=== PATIENT | male | born 1960 | race Hispanic/Latino ===

== ENCOUNTER 2020-07-24 08:52 | Inpatient (IN) | payer OTHER ==
[2020-07-24] MEDS ORDERED: HEPARIN 1,000 UNIT/1 ML VIAL IV ONE (08:58)
[2020-07-24] MEDS ORDERED: HEPARIN 10,000 UNITS/10 ML VIAL IV PRN (08:58)
[2020-07-24] MEDS ORDERED: NITROGLYCERIN 2% OINT 1 GM TP ONE (09:00)
[2020-07-24] MEDS ORDERED: NITROGLYCERIN 0.4 MG TAB SUBL SL ONE (09:00)
[2020-07-24] MEDS ORDERED: ONDANSETRON 4 MG/2 ML INJ ONE ×3 (09:02→10:34)
[2020-07-24] MEDS ORDERED: SODIUM CHLORIDE 0.9% 1000 ML 1,000 ML ONE ×2 (09:03→09:23)
[2020-07-24] MEDS ORDERED: ONDANSETRON 4 MG/2 ML INJ IV ONE ×2 (09:06→09:18)
--- NOTE | 2020-07-24 09:06 | Emergency Department Report ---
ED Chest Pain HPI - General Chief Complaint: Chest Pain Stated Complaint: CHEST PAIN PUI?: Yes Source: EMS Mode of arrival: Stretcher Limitations: No Limitations - History of Present Illness Initial Comments: This is a 50-year-old man who had a stent placed in his RCA when he presented with a STEMI in 2013 by Counts include 234 beds at the [facility]. He states he did not follow-up with a single corner cutter because "I did not want to bother anyone". He states he developed a dull ache in his substernal region intermittently radiating to his jaw since 11 AM yesterday. 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 He called EMS shortly prior to arrival. They transmitted a twelve-lead EKG which was consistent with inferior wall STEMI. A STEMI code was called immediately upon review of the EKG. The single corner cutter was notified at that time. I discussed the case again with the single corner cutter after the patient arrived. Code STEMI is in progress. Patient was not given nitroglycerin per the EMS. His blood pressure was 140/100. 1 sublingual nitroglycerin was given and we will monitor closely. 4000 units of heparin IV. Complaint: chest pain -: Gradual Onset: during rest Pain Location: substernal Pain Radiation: jaw/teeth Severity: moderate (Yesterday), severe (Today) Quality: dull Consistency: constant Improves With: nothing Worsens With: nothing Context: other (History of RCA stent) re: nausea Other Symptoms: denies: cough, fever, syncope Treatments Prior to Arrival: aspirin (Took 2 aspirin this morning) Aspirin use within the Past 7 Days: (1) Yes - Related Data On Oral Contraceptives: No Home Medications Medication Instructions Recorded Confirmed Last Taken Aspirin [Adult Aspirin] 162 mg PO DAILY 07/24/20 07/24/20 Unknown Allergies Allergy/AdvReac Type Severity Reaction Status Date / Time Cvbbjig-Jbo-Lnh Reductase Allergy Unknown Verified 07/24/20 08:58 Inhibitor Heart Score - HEART Score History: Highly suspicious EKG: Significant ST-depression Age: 45-65 Risk factors: > 3 risk factors or hx of atherosclerotic disease Troponin: 1-3x normal limit HEART Score: 8 - Critical Actions Critical Actions: >7 pts:50-65% risk of adverse cardiac event. Early invasive measures ED Review of Systems ROS: Stated complaint: CHEST PAIN Other details as noted in HPI Constitutional: denies: chills, fever Eyes: denies: eye pain, vision change ENT: denies: ear pain, throat pain Respiratory: denies: cough, shortness of breath Cardiovascular: chest pain. denies: palpitations Endocrine: no symptoms reported Gastrointestinal: nausea. denies: abdominal pain, diarrhea Genitourinary: denies: urgency, dysuria Musculoskeletal: denies: back pain, arthralgia Skin: denies: rash, lesions Neurological: denies: headache, weakness, paresthesias Psychiatric: denies: anxiety, depression Hematological/Lymphatic: denies: easy bleeding, easy bruising ED Past Medical Hx - Past Medical History Hx Hypertension: Yes Hx CVA: No Hx Heart Attack/AMI: Yes Hx Congestive Heart Failure: No Hx Diabetes: No Hx Asthma: No Hx COPD: No Hx HIV: No - Surgical History Hx Coronary Stent: Yes - Social History Smoking Status: Never Smoker - Medications Home Medications: Home Medications Medication Instructions Recorded Confirmed Last Taken Type Aspirin [Adult Aspirin] 162 mg PO DAILY 07/24/20 07/24/20 Unknown History ED Physical Exam - General Limitations: No Limitations General appearance: alert, in no apparent distress - Head Head exam: Present: atraumatic, normocephalic - Eye Eye exam: Present: normal appearance. Absent: scleral icterus - ENT ENT exam: Present: mucous membranes moist - Neck Neck exam: Present: normal inspection - Respiratory Respiratory exam: Present: normal lung sounds bilaterally. Absent: respiratory distress - Cardiovascular Cardiovascular Exam: Present: regular rate, normal rhythm. Absent: systolic murmur, diastolic murmur, rubs, gallop - GI/Abdominal GI/Abdominal exam: Present: soft, normal bowel sounds. Absent: distended, tenderness, guarding, rebound - Rectal Rectal exam: Present: deferred - Extremities Exam Extremities exam: Present: normal inspection - Back Exam Back exam: Present: normal inspection - Neurological Exam Neurological exam: Present: alert, oriented X3, CN II-XII intact. Absent: motor sensory deficit - Psychiatric Psychiatric exam: Present: normal affect, normal mood - Skin Skin exam: Present: warm, dry, intact, normal color. Absent: rash ED Course Vital Signs 07/24/20 07/24/20 07/24/20 08:54 09:02 09:06 Temperature Pulse Rate 89 55 L Respiratory 16 18 16 Rate Blood Pressure 140/103 Blood Pressure 79/40 [Left] O2 Sat by Pulse 100 98 Oximetry 07/24/20 07/24/20 07/24/20 09:08 09:11 09:18 Temperature 97.9 F Pulse Rate 52 L Respiratory 16 Rate Blood Pressure Blood Pressure 103/57 119/75 [Left] O2 Sat by Pulse 99 Oximetry - Reevaluation(s) Reevaluation #1: Patient was transferred to the [facility] in stable condition. 07/24/20 09:30 Reevaluation #2: Hospitalist informed. Requested ICU placement. 07/24/20 09:37 JESUS score - Jesus Score Age > 65: (0) No Aspirin use within the Past 7 Days: (1) Yes 3 or more CAD Risk Factors: (1) Yes 2 or more Angina events in past 24 hrs: (1) Yes Known CAD with more than 50% Stenosis: (1) Yes Elevated Cardiac Markers: (1) Yes ST Deviation Greater than 0.5mm: (1) Yes JESUS Score: 6 ED Medical Decision Making - Lab Data Result diagrams: 07/24/20 09:01 07/24/20 09:01 - EKG Data -: EKG Interpreted by Me EKG shows normal: sinus rhythm Rate: normal - EKG Data Interpretation: other (Consistent with inferior wall STEMI and reciprocal changes) Critical Care Time: Yes Critical care time in (mins) excluding proc time.: 30 Critical care attestation.: If time is entered above; I have spent that time in minutes in the direct care of this critically ill patient, excluding procedure time. ED Disposition Clinical Impression: Acute ST elevation myocardial infarction (STEMI) of inferior wall Disposition: -09 OP ADMIT IP TO THIS HOSP Is pt being admited?: Yes Does the pt Need Aspirin: Yes (Already taken to prior to arrival) Condition: Stable Referrals: PRIMARY CARE, [Primary Care Provider] - 3-5 Days Time of Disposition: 09:37
[2020-07-24 09:13] LABS: Basophils # (Auto) 0.1 K/mm3 (0.0-0.1); Basophils % (Auto) 1.2 % (0.0-1.8); Eosinophils % (Auto) 0.1 % (0.0-4.3); Hematocrit 50.3 % (35.5-45.6); Hemoglobin 17.4 gm/dl (11.8-15.2); Lymphocytes # (Auto) 0.8 K/mm3 (1.2-5.4); Lymphocytes % (Auto) 6.6 % (13.4-35.0); Mean Corpuscular HGB Conc 35 % (32-34); Mean Corpuscular Volume 89 fl (84-94); Monocytes # (Auto) 0.3 K/mm3 (0.0-0.8); Monocytes % (Auto) 2.2 % (0.0-7.3); Platelet Count 359 K/mm3 (140-440); Red Blood Count 5.67 M/mm3 (3.65-5.03)
[2020-07-24] MEDS ORDERED: HEPARIN/NS 5000 UNIT/500ML 1,000 ML IR ONE (09:22)
[2020-07-24] MEDS ORDERED: NITROGLYCERIN SYRINGE 3 ML ONE (09:22)
[2020-07-24 09:28] LABS: BUN/Creatinine Ratio 15; Blood Urea Nitrogen 15 mg/dL (9-20); Calcium 10.1 mg/dL (8.4-10.2); Hemolysis Index 5
[2020-07-24 09:29] LABS: INR 0.85 (0.87-1.13)
[2020-07-24 09:30] LABS: Partial Thromboplastin Time 36.9 Sec. (24.2-36.6)
--- NOTE | 2020-07-24 09:33 | XRay Report ---
CHEST 1 VIEW 07/24/2020 8:27 AM INDICATION / CLINICAL INFORMATION: chest pain. COMPARISON: 08/01/2013 FINDINGS: SUPPORT DEVICES: None. HEART / MEDIASTINUM: No significant abnormality. LUNGS / PLEURA: Low lung volumes without acute pulmonary parenchymal or pleural abnormality identifie d. No pneumothorax. ADDITIONAL FINDINGS: No significant additional findings. IMPRESSION: 1. No acute findings. Signer Name: Dennis Vann MD Signed: 07/24/2020 9:29 AM Workstation Name: [id number]
[2020-07-24 09:38] LABS: Chol/HDL Ratio 5.01 %; HDL Cholesterol 69 mg/dL (40-59); LDL Cholesterol,Direct 267 mg/dL (50-130)
[2020-07-24] MEDS: fentaNYL 100 MCG/2 ML INJ ONE ×3 (09:43→09:50)
[2020-07-24] MEDS: MIDAZOLAM 2 MG/2 ML INJ ONE ×3 (09:44→09:50)
[2020-07-24] MEDS: VERAPAMIL 5 MG/2 ML INJ ONE ×2 (09:44→09:48)
[2020-07-24] MEDS: LIDOCAINE (2%) 20 MG/1 ML VIAL 20 ML MDV INFILTRATI ONE ×2 (09:44→09:47)
[2020-07-24] MEDS: HEPARIN 10,000 UNITS/10 ML VIAL ONE ×3 (09:44→10:02)
[2020-07-24] MEDS ORDERED: ATROPINE 0.1% (1 MG/10 ML) CARDIAC SYRINGE ONE ×2 (10:01→10:23)
[2020-07-24] MEDS ORDERED: TIROFIBAN/NS 12,500 MCG/250 ML BAG IV ONE (10:10)
[2020-07-24] MEDS ORDERED: METOPROLOL TARTRATE 5 MG/5 ML INJ IV ONE ×2 (10:12→10:17)
[2020-07-24] MEDS ORDERED: HEPARIN/NS 5000 UNIT/500ML 500 ML IR ONE (10:24)
[2020-07-24] MEDS ORDERED: VERAPAMIL 5 MG/2 ML INJ ONE (10:35)
[2020-07-24] MEDS ORDERED: CLOPIDOGREL 300 MG TAB ONE ×2 (10:41)
--- NOTE | 2020-07-24 12:06 | Cardiac Catherization Report ---
CARDIAC CATHETERIZATION AND CORONARY ANGIOPLASTY REPORT REASON FOR PROCEDURE: The patient is a 60-year-old man with a history of coronary artery disease and previous proximal right coronary artery stent. He presented to the hospital with chest pain and ECG consistent with an acute inferior wall ST elevation myocardial infarction. Emergency cardiac catheterization protocol was activated. PROCEDURES: 1. Left heart catheterization. 2. Selective left and right coronary angiography. 3. Coronary angioplasty and stenting of the distal right coronary artery. 4. Sedation time, start 0947, end 10:41. I was present for the entire procedure and supervised the moderate sedation protocol. The patient was prepped and draped in a sterile fashion after informed consent. The right radial cath site was prepped and draped after a negative Amrit's test. The right radial artery was entered using Seldinger technique followed by placement of a 6-Albanian hydrophilic sheath. Routine radial cocktail was administered via the sheath. Left coronary angiography was performed using a #3.5 left Abdirahman. Following this, we then exchanged for a #4 right Abdirahman guiding catheter and performed right coronary angiography. The angiograms were reviewed. CORONARY ANGIOGRAPHY: There was mild ostial narrowing of the left main coronary artery. The left anterior descending artery contained mild irregularities of its proximal segment. This was followed by a 30-40% luminal stenosis of the mid LAD at the origin of a medium sized mid diagonal branch. More distally, there was a 60-70% hazy stenosis of the mid distal LAD. The large, mid obtuse marginal branch of the circumflex artery contained a 60-70% stenosis of its proximal to mid segment before its bifurcation into 2 large subbranches. The right coronary artery was dominant. A stent was visible in the proximal to mid vessel. The stented segment was patent with minimal in-stent restenosis. Beyond that, there was a de liza 70% stenosis of the mid vessel at the acute margin. Beyond the acute margin, the right coronary artery was then occluded in its distal AV groove segment. This distal occlusion was the infarct related lesion and the target for coronary intervention. CORONARY ANGIOPLASTY: We exchanged the right Abdirahman guiding catheter for a 6-Albanian hockey stick catheter to provide a more optimal support. A 0.014 inch Ticker Wirer 50 guidewire was then directed into the right coronary artery to the distal segment and successfully penetrating the distal occlusion. Following wire placement, we used a 3.0 mm balloon catheter and predilated, restoring JESUS 2 flow and revealing a large distal right coronary system consisting of a large posterior descending branch and another large posterolateral branch. Following initial angioplasty, there was a residual, 99% stenosis at the infarct occlusion site. Initial attempts at stent deployment using a 3.5 x 22 mm stent were unsuccessful even with the use of a rohan wire. We then elected to target the focal occlusion using a 3.5 x 12 mm drug-eluting stent, which was successfully deployed and inflated to optimal pressures. Following stenting, there was scientologist of JESUS 3 flow, and excellent angiographic result and 0 residual stenosis at the primary treated site. The additional noninfarct lesions of borderline severity, located at the acute margin, the proximal PDA, and the proximal segment of the posterior left ventricular branch were all recommended for no interventional treatment at the current time. The procedure was well tolerated by the patient and there were no complications. The catheters and the wires were removed, sheath removed, and hemostasis achieved using a TR band. The patient was returned to the postprocedure unit in stable condition. CONCLUSION: 1. Acute inferior wall ST elevation myocardial infarction. 2. Multivessel coronary artery disease. 3. The infarct lesion is a de liza occlusion of the distal right coronary artery, distant from the previous coronary stent. 4. Successful angioplasty and stenting of the distal right coronary artery, with deployment of a 3.5 x 12 mm drug-eluting stent, excellent result at the treated site. The patient is admitted for post-myocardial infarction stabilization. Lesions of varying severity of the mid distal LAD, mid obtuse marginal branch of the circumflex and mid and distal segments of the right coronary artery will be considered for a staged management. Ultimately, the patient may be a candidate for surgical multivessel revascularization. An echocardiogram will be ordered for left ventricular function and valvular function assessment. [facility]# [id number] CA/NTS
--- NOTE | 2020-07-24 12:15 | History and Physical Report ---
History of Present Illness Date of examination: 07/24/20 Date of admission: 07/24/20 09:38 Chief complaint: Chest pain History of present illness: 60 year old with a medical history of CAD s/p stents who presented to the ED with a chief complaint of chest pain. He states his chest pain started on the day prior to presentation. It was located mainly around the substernal area and was radiating to the jaw intermittently. Due to persistent symptoms, he called the EMS today. On arrival, EMS performed an EKG which showed inferior wall STEMI and a STEMI code was initiated after confirmation with the timber management specialist. He had left cath that showed patent proximal to mid right coronary stent but more distally, the vessel was occluded. Angioplasty with stent placement was performed successfully. 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 Past History Past Medical History: acute [place], hypertension Medications and Allergies Allergies Allergy/AdvReac Type Severity Reaction Status Date / Time Lacaiay-Ubh-Rko Reductase Allergy Unknown Verified 07/24/20 08:58 Inhibitor Home Medications Medication Instructions Recorded Confirmed Last Taken Type Aspirin [Adult Aspirin] 162 mg PO DAILY 07/24/20 07/24/20 Unknown History Active Meds: Active Medications Heparin Sodium (Porcine) (Heparin 10,000 Units/10 Ml Vial) 2,800 unit 40 unit/kg (2800 unit) IV Q6H PRN PRN Reason: Anti-Xa Assay less than 0.1 un Exam - Constitutional Vitals: Temp Pulse Resp BP Pulse Ox 17 F L 81 19 90/65 91 07/24/20 12:00 07/24/20 12:00 07/24/20 12:00 07/24/20 12:00 07/24/20 12:00 General appearance: Present: no acute distress - EENT Eyes: Present: PERRL ENT: hearing intact - Neck Neck: Present: supple, normal ROM - Respiratory Respiratory effort: normal Respiratory: bilateral: CTA - Cardiovascular Heart Sounds: Present: S1 & S2. Absent: rub, click - Extremities Extremities: pulses symmetrical, No edema Peripheral Pulses: within normal limits - Abdominal General gastrointestinal: Present: soft, non-tender, non-distended, normal bowel sounds Male genitourinary: Present: normal - Integumentary Integumentary: Present: clear, warm, dry - Musculoskeletal Musculoskeletal: gait normal, strength equal bilaterally - Psychiatric Psychiatric: appropriate mood/affect, intact judgment & insight - Neurologic Neurologic: CNII-XII intact, moves all extremities HEART Score - HEART Score EKG: Significant ST-depression Age: 45-65 Risk factors: > 3 risk factors or hx of atherosclerotic disease Troponin: Troponin T 0.056 ng/mL (0.00-0.029) H 07/24/20 09: Troponin: 1-3x normal limit - Critical Actions Critical Actions: >7 pts:50-65% risk of adverse cardiac event. Early invasive measures Results - Labs CBC & Chem 7: 07/24/20 09:01 07/24/20 09: Labs: Laboratory Last Values WBC 12.4 K/mm3 (4.5-11.0) H 07/24/20 09: RBC 5.67 M/mm3 (3.65-5.03) H 07/24/20 09: Hgb 17.4 gm/dl (11.8-15.2) H 07/24/20 09: Hct 50.3 % (35.5-45.6) H 07/24/20 09: MCV 89 fl (84-94) 07/24/20 09: MCH 31 pg (28-32) 07/24/20 09: MCHC 35 % (32-34) H 07/24/20 09: RDW 13.0 % (13.2-15.2) L 07/24/20 09: Plt Count 359 K/mm3 (140-440) 07/24/20 09: Lymph % (Auto) 6.6 % (13.4-35.0) L 07/24/20 09: [place] % (Auto) 2.2 % (0.0-7.3) 07/24/20 09: Eos % (Auto) 0.1 % (0.0-4.3) 07/24/20 09: Baso % (Auto) 1.2 % (0.0-1.8) 07/24/20 09: Lymph # (Auto) 0.8 K/mm3 (1.2-5.4) L 07/24/20 09: [place] # (Auto) 0.3 K/mm3 (0.0-0.8) 07/24/20 09: Eos # (Auto) 0.0 K/mm3 (0.0-0.4) 07/24/20 09:01 Baso # (Auto) 0.1 K/mm3 (0.0-0.1) 07/24/20 09:01 Seg Neutrophils % 89.9 % (40.0-70.0) H 07/24/20 09:01 Seg Neutrophils # 11.2 K/mm3 (1.8-7.7) H 07/24/20 09: PT 11.4 Sec. (12.2-14.9) L 07/24/20 09:01 INR 0.85 (0.87-1.13) L 07/24/20 09:01 APTT 36.9 Sec. (24.2-36.6) H 07/24/20 09:01 Sodium 140 mmol/L (137-145) 07/24/20 09:01 Potassium 4.3 mmol/L (3.6-5.0) 07/24/20 09: Chloride 98.4 mmol/L (98-107) 07/24/20 09:01 Carbon Dioxide 32 mmol/L (22-30) H 07/24/20 09:01 Anion Gap 14 mmol/L 07/24/20 09:01 BUN 15 mg/dL (9-20) 07/24/20 09:01 Creatinine 1.0 mg/dL (0.8-1.3) 07/24/20 09:01 Estimated GFR > 60 ml/min 07/24/20 09:01 BUN/Creatinine Ratio 15 % 07/24/20 09: Glucose 150 mg/dL (75-100) H 07/24/20 09:01 Calcium 10.1 mg/dL (8.4-10.2) 07/24/20 09:01 Total Creatine Kinase 317 units/L (55-170) H 07/24/20 09:01 CK-MB (CK-2) 41.0 ng/mL (0.0-4.0) H 07/24/20 09: CK-MB (CK-2) Rel Index 12.9 (0-4) H 07/24/20 09:01 Troponin T 0.056 ng/mL (0.00-0.029) H 07/24/20 09:01 NT-Pro-B Natriuret Pep 396.8 pg/mL (0-900) 07/24/20 09: Triglycerides 251 mg/dL (2-149) H 07/24/20 09: Cholesterol 346 mg/dL (50-199) H 07/24/20 09:01 LDL Cholesterol Direct 267 mg/dL (50-130) H 07/24/20 09:01 HDL Cholesterol 69 mg/dL (40-59) H 07/24/20 09:01 Cholesterol/HDL Ratio 5.01 % 07/24/20 09: Blood Type O POSITIVE 07/24/20 09: Antibody Screen Negative 07/24/20 09:01 Assessment and Plan Assessment and plan: CAD with STEMI -s/p PCI with stent placement -Continue aspirin -Patient allergic to statins -Cardiology recs appreciated Hyperlipidemia -Patient is allergic to statins -Check hemoglobin A1c -Lifestyle modification DVT ppx - heparin Full code
--- NOTE | 2020-07-24 12:43 | Consultation ---
History of Present Illness Consult date: 07/24/20 Consult reason: chest pain, other (Acute inferior STEMI) History of present illness: Patient is a 60-year-old man who presented to the hospital with chest pain and ECG consistent with acute inferior ST elevation myocardial infarction. He has a history of coronary artery disease and 6 years ago underwent coronary stenting of the proximal to mid right coronary artery. 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 Today, he was taken emergently to the cardiac catheterization lab, we found the prior proximal to mid right coronary stents to be patent, but more distally the vessel was occluded beyond the acute margin. We immediately performed successful angioplasty, with jewish of JESUS-3 flow after implantation of a 3.5 x 12 mm drug-eluting stent. In addition to the primary infarct lesion, the patient has multiple other stenoses of varying severity in the mid and distal right coronary artery, mid obtuse marginal branch of the circumflex and mid to distal LAD. Post intervention, he is admitted to the CCU for post NE supportive management. An echocardiogram will be ordered for left ventricular function assessment. His multiple noninfarct lesions in all 3 coronary segments will be reviewed for future revascularization efforts. Of note, his laboratory values show severe hyperlipidemia with an LDL of 267. The patient states that he is allergic to statins, but unable to fully articulate the nature of the reported allergy. Other than a statin, we will implement full guideline directed medical therapy. Past History Past Medical History: CAD Past Surgical History: PTCA, Other (Coronary stent) Medications and Allergies Allergies Allergy/AdvReac Type Severity Reaction Status Date / Time Fszvlbs-Bxu-Ypu Reductase Allergy Unknown Verified 07/24/20 08:58 Inhibitor Home Medications Medication Instructions Recorded Confirmed Last Taken Type Aspirin [Adult Aspirin] 162 mg PO DAILY 07/24/20 07/24/20 Unknown History Review of Systems Cardiovascular: chest pain, shortness of breath, no orthopnea, no palpitations, no rapid/irregular heart beat, no edema, no syncope, no lightheadedness Physical Examination Vital Signs Pulse Resp BP Pulse Ox 89 16 140/103 100 07/24/20 08:54 07/24/20 08:54 07/24/20 08:54 07/24/20 08:54 General appearance: no acute distress HEENT: Positive: PERRL Neck: Positive: neck supple Cardiac: Positive: Reg Rate and Rhythm Lungs: Positive: Decreased Breath Sounds Neuro: Positive: Grossly Intact Abdomen: Positive: Soft Male genitourinary: Positive: deferred Skin: Positive: Clear Extremities: Absent: edema Results 07/24/20 09:01 07/24/20 09:01 Cardiac Enzymes 07/24/20 Range/Units 09:01 CK-MB (CK-2) 41.0 H (0.0-4.0) ng/mL Coagulation 07/24/20 Range/Units 09:01 PT 11.4 L (12.2-14.9) Sec. INR 0.85 L (0.87-1.13) APTT 36.9 H (24.2-36.6) Sec. Lipids 07/24/20 Range/Units 09:01 Triglycerides 251 H (2-149) mg/dL Cholesterol 346 H (50-199) mg/dL HDL Cholesterol 69 H (40-59) mg/dL Cholesterol/HDL Ratio 5.01 % CBC 07/24/20 Range/Units 09:01 WBC 12.4 H (4.5-11.0) K/mm3 RBC 5.67 H (3.65-5.03) M/mm3 Hgb 17.4 H (11.8-15.2) gm/dl Hct 50.3 H (35.5-45.6) % Plt Count 359 (140-440) K/mm3 Lymph # (Auto) 0.8 L (1.2-5.4) K/mm3 [place] # (Auto) 0.3 (0.0-0.8) K/mm3 Eos # (Auto) 0.0 (0.0-0.4) K/mm3 Baso # (Auto) 0.1 (0.0-0.1) K/mm3 Comprehensive Metabolic Panel 07/24/20 Range/Units 09:01 Sodium 140 (137-145) mmol/L Potassium 4.3 (3.6-5.0) mmol/L Chloride 98.4 (98-107) mmol/L Carbon Dioxide 32 H (22-30) mmol/L BUN 15 (9-20) mg/dL Creatinine 1.0 (0.8-1.3) mg/dL Glucose 150 H (75-100) mg/dL Calcium 10.1 (8.4-10.2) mg/dL EKG interpretations - Telemetry EKG Rhythm: Sinus Rhythm (With acute inferior ST elevation myocardial infarction) Assessment and Plan - Patient Problems (1) Acute ST elevation myocardial infarction (STEMI) of inferior wall Current Visit: Yes Status: Acute Plan to address problem: Status post primary angioplasty and stenting of the distal right coronary artery occlusion. Admit to CCU for supportive care and guideline directed medical management.
[2020-07-24] MEDS ORDERED: SODIUM CHLORIDE 0.9% 1000 ML 1,000 ML IV SCH (12:45)
[2020-07-24] MEDS ORDERED: TIROFIBAN/NS 12,500 MCG/250 ML BAG IV SCH (13:00)
[2020-07-24] MEDS: LOSARTAN 25 MG TAB PO SCH (15:30)
[2020-07-24] MEDS: METOPROLOL TARTRATE 50 MG TAB PO SCH (15:31)
[2020-07-24 16:57] LABS: Creatine Kinase MB 187.9 ng/mL (0.0-4.0)
[2020-07-25] MEDS: HYDROcodone/ACETAMINOPHEN 5-325 MG TAB PO PRN (00:55)
[2020-07-25] MEDS: METOPROLOL TARTRATE 50 MG TAB PO SCH ×3 (00:57→21:31)
[2020-07-25] MEDS: ACETAMINOPHEN 325 MG TAB PO PRN ×2 (03:57→18:19)
--- NOTE | 2020-07-25 04:51 | XRay Report ---
CHEST 1 VIEW 07/25/2020 3:21 AM INDICATION / CLINICAL INFORMATION: post pci. COMPARISON: Yesterday FINDINGS: SUPPORT DEVICES: None. HEART / MEDIASTINUM: No significant abnormality. LUNGS / PLEURA: No significant pulmonary or pleural abnormality. No pneumothorax. ADDITIONAL FINDINGS: No significant additional findings. IMPRESSION: 1. No acute findings. Signer Name: oLs Fields MD Signed: 07/25/2020 4:47 AM Workstation Name: [id number]
[2020-07-25 05:02] LABS: Basophils # (Auto) 0.2 K/mm3 (0.0-0.1); Basophils % (Auto) 1.3 % (0.0-1.8); Eosinophils # (Auto) 0.1 K/mm3 (0.0-0.4); Eosinophils % (Auto) 0.8 % (0.0-4.3); Hemoglobin 14.3 gm/dl (11.8-15.2); Lymphocytes # (Auto) 2.4 K/mm3 (1.2-5.4); Lymphocytes % (Auto) 19.1 % (13.4-35.0); Mean Corpuscular HGB Conc 34 % (32-34); Mean Corpuscular Volume 91 fl (84-94); Monocytes # (Auto) 1.1 K/mm3 (0.0-0.8); Monocytes % (Auto) 8.6 % (0.0-7.3); Platelet Count 293 K/mm3 (140-440); Red Blood Count 4.59 M/mm3 (3.65-5.03); Red Cell Distribution Width 13.1 % (13.2-15.2)
[2020-07-25 05:23] LABS: BUN/Creatinine Ratio 20; Blood Urea Nitrogen 18 mg/dL (9-20); Calcium 8.6 mg/dL (8.4-10.2); Hemolysis Index 7
[2020-07-25] MEDS: CLOPIDOGREL 75 MG TAB PO SCH (09:14)
[2020-07-25] MEDS: LOSARTAN 25 MG TAB PO SCH (09:14)
[2020-07-25] MEDS: ASPIRIN EC 325 MG TAB PO SCH (09:14)
--- NOTE | 2020-07-25 09:58 | Progress Note ---
Assessment and Plan - Patient Problems (1) Acute ST elevation myocardial infarction (STEMI) of inferior wall Current Visit: Yes Status: Acute Plan to address problem: Patient is status post successful primary angioplasty of distal RCA occlusion. Continue supportive management and optimal medical therapy. Further management will depend on clinical course. Subjective Date of service: 07/25/20 Interval history: Patient is comfortable in no acute distress, normal sinus rhythm with stable blood pressures. Objective Vital Signs Temp Pulse Pulse Resp BP Pulse Ox 07/25/20 09:14 81 148/82 07/25/20 09:00 69 16 148/82 98 07/25/20 08:50 65 22 152/88 97 07/25/20 08:40 77 11 L 152/88 98 07/25/20 08:30 83 19 152/88 99 07/25/20 08:20 62 18 152/88 100 07/25/20 08:10 70 13 152/88 98 07/25/20 08:00 98 F 61 62 17 152/88 98 07/25/20 07:50 63 18 158/89 96 07/25/20 07:40 81 15 158/89 95 07/25/20 07:30 69 19 158/89 99 07/25/20 07:20 62 16 158/89 100 07/25/20 07:10 63 20 158/89 100 07/25/20 07:00 64 17 158/89 99 07/25/20 06:50 64 17 144/103 100 07/25/20 06:40 65 14 144/103 98 07/25/20 06:30 66 14 144/103 99 07/25/20 06:20 81 14 144/103 100 07/25/20 06:10 65 22 144/103 99 07/25/20 06:00 94 H 25 H 144/103 97 07/25/20 05:50 68 16 141/116 98 07/25/20 05:48 69 07/25/20 05:40 68 22 141/116 98 07/25/20 05:30 66 16 141/116 98 07/25/20 05:20 61 24 141/116 99 07/25/20 05:10 69 17 141/116 98 07/25/20 05:00 75 17 141/116 99 07/25/20 04:50 60 17 148/94 99 07/25/20 04:40 65 10 L 148/94 100 07/25/20 04:30 68 13 148/94 99 07/25/20 04:20 58 L 18 148/94 99 07/25/20 04:10 57 L 16 148/94 100 07/25/20 04:00 58 L 68 13 148/94 99 07/25/20 03:50 83 19 137/82 98 07/25/20 03:40 54 L 19 137/82 100 07/25/20 03:30 61 18 137/82 99 07/25/20 03:26 98.1 F 07/25/20 03:20 64 16 137/82 97 07/25/20 03:10 61 18 137/82 99 07/25/20 03:00 56 L 19 137/82 99 07/25/20 02:50 55 L 16 130/77 99 07/25/20 02:40 59 L 18 130/77 99 07/25/20 02:30 51 L 19 158/91 99 07/25/20 02:24 56 L 17 158/91 99 07/25/20 02:10 59 L 17 130/77 97 07/25/20 02:00 63 17 158/91 98 07/25/20 01:50 63 13 158/91 98 07/25/20 01:40 65 15 158/91 93 07/25/20 01:30 67 12 158/91 95 07/25/20 01:20 69 16 158/91 98 07/25/20 01:10 74 12 158/91 99 07/25/20 01:00 64 12 144/73 99 07/25/20 00:57 83 144/73 07/25/20 00:50 72 15 144/73 99 07/25/20 00:40 81 22 144/73 96 07/25/20 00:30 66 20 144/73 96 07/25/20 00:20 72 21 144/73 96 07/25/20 00:10 67 19 144/73 93 07/25/20 00:00 71 64 23 133/82 96 07/24/20 23:52 99 F 07/24/20 23:50 74 21 133/82 95 07/24/20 23:40 75 21 133/82 96 07/24/20 23:30 71 21 133/82 95 07/24/20 23:20 78 13 133/82 98 07/24/20 23:10 83 18 133/82 95 07/24/20 23:00 64 19 125/74 99 07/24/20 22:50 71 22 125/74 96 07/24/20 22:40 76 22 125/74 96 07/24/20 22:30 71 18 125/74 96 07/24/20 22:24 64 21 125/74 97 07/24/20 21:07 97 07/24/20 20:00 63 63 20 07/24/20 19:57 98.8 F 07/24/20 14:30 98.3 F 07/24/20 13:59 97.9 F 81 10 L 96 07/24/20 13:30 97.9 F 78 18 93/60 97 07/24/20 13:15 97.7 F 79 23 94/59 95 07/24/20 13:00 97.7 F 81 22 93/61 95 07/24/20 12:45 98 F 86 14 93/63 95 07/24/20 12:30 97.8 F 78 23 97/65 93 07/24/20 12:15 97.8 F 79 23 96/65 95 07/24/20 12:00 97.7 F 81 19 90/65 91 07/24/20 11:45 97.8 F 82 19 92/59 94 07/24/20 11:30 97.7 F 88 12 102/63 98 07/24/20 11:15 97.7 F 86 15 119/81 98 - Physical Examination General: No Apparent Distress HEENT: Positive: PERRL Neck: Positive: neck supple Cardiac: Positive: Reg Rate and Rhythm Lungs: Positive: Decreased Breath Sounds Neuro: Positive: Grossly Intact Abdomen: Positive: Soft Skin: Positive: Clear Extremities: Absent: edema - Labs and Meds Cardiac Enzymes 07/24/20 07/25/20 Range/Units 16:05 04:32 CK-MB (CK-2) 187.9 H 128.0 H (0.0-4.0) ng/mL CBC 07/25/20 Range/Units 04:32 WBC 12.5 H (4.5-11.0) K/mm3 RBC 4.59 (3.65-5.03) M/mm3 Hgb 14.3 D (11.8-15.2) gm/dl Hct 42.0 D (35.5-45.6) % Plt Count 293 (140-440) K/mm3 Lymph # (Auto) 2.4 (1.2-5.4) K/mm3 [place] # (Auto) 1.1 H (0.0-0.8) K/mm3 Eos # (Auto) 0.1 (0.0-0.4) K/mm3 Baso # (Auto) 0.2 H (0.0-0.1) K/mm3 Comprehensive Metabolic Panel 07/25/20 Range/Units 04:32 Sodium 142 (137-145) mmol/L Potassium 3.9 (3.6-5.0) mmol/L Chloride 104.8 (98-107) mmol/L Carbon Dioxide 24 D (22-30) mmol/L BUN 18 (9-20) mg/dL Creatinine 0.9 (0.8-1.3) mg/dL Glucose 112 H (75-100) mg/dL Calcium 8.6 (8.4-10.2) mg/dL
--- NOTE | 2020-07-25 11:24 | Progress Note ---
Assessment and Plan Assessment and plan: 60 year old with a medical history of CAD s/p stents who presented to the ED with a chief complaint of chest pain. He states his chest pain started on the day prior to presentation. It was located mainly around the substernal area and was radiating to the jaw intermittently. Due to persistent symptoms, he called the EMS today. On arrival, EMS performed an EKG which showed inferior wall STEMI and a STEMI code was initiated after confirmation with the inside upholsterer. He had left cath that showed patent proximal to mid right coronary stent but more distally, the vessel was occluded. Angioplasty with stent placement was performed successfully. 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 Problems CAD with STEMI -s/p PCI with stent placement -Continue aspirin -Patient allergic to statins -Cardiology recs appreciated -Echo - LVH with normal EF Hyperlipidemia -Patient is allergic to statins -Check hemoglobin A1c -Lifestyle modification DVT ppx - heparin Full code History Interval history: 07/25. He has no complaints - denies chest pain Cardiology following Hospitalist Physical - Physical exam Narrative exam: VITAL SIGNS: Reviewed. GENERAL: Awake HEAD: No signs of head trauma. EYES: Pupils are equal. Extraocular motions intact. MOUTH: Oropharynx is normal. NECK: No adenopathy, no JVD. CHEST: Chest with diminished breath sounds bilaterally. No wheezes, rales, or rhonchi. CARDIAC: normal S1 and S2, without murmurs, gallops, or rubs. ABDOMEN: Soft, non tender and non distended. No rebound or guarding, and no masses palpated. Bowel Sounds normal. MUSCULOSKELETAL: No edema NEUROLOGIC EXAM: Alert and oriented x3. No focal neurologic deficits SKIN: No obvious lesions - Constitutional Vitals: Temp Pulse Resp BP Pulse Ox 98 F 69 20 142/81 95 07/25/20 08:00 07/25/20 11:00 07/25/20 11:00 07/25/20 11:00 07/25/20 11:00 HEART Score - HEART Score EKG: Significant ST-depression Age: 45-65 Risk factors: > 3 risk factors or hx of atherosclerotic disease Troponin: Troponin T 1.490 ng/mL (0.00-0.029) H* 07/25/20 04:32 Troponin: 1-3x normal limit - Critical Actions Critical Actions: >7 pts:50-65% risk of adverse cardiac event. Early invasive measures Results - Labs CBC & Chem 7: 07/25/20 04:32 07/25/20 04:32 Labs: Laboratory Last Values WBC 12.5 K/mm3 (4.5-11.0) H 07/25/20 04:32 RBC 4.59 M/mm3 (3.65-5.03) 07/25/20 04:32 Hgb 14.3 gm/dl (11.8-15.2) D 07/25/20 04:32 Hct 42.0 % (35.5-45.6) D 07/25/20 04:32 MCV 91 fl (84-94) 07/25/20 04:32 MCH 31 pg (28-32) 07/25/20 04:32 MCHC 34 % (32-34) 07/25/20 04:32 RDW 13.1 % (13.2-15.2) L 07/25/20 04:32 Plt Count 293 K/mm3 (140-440) 07/25/20 04:32 Lymph % (Auto) 19.1 % (13.4-35.0) 07/25/20 04:32 [place] % (Auto) 8.6 % (0.0-7.3) H 07/25/20 04:32 Eos % (Auto) 0.8 % (0.0-4.3) 07/25/20 04:32 Baso % (Auto) 1.3 % (0.0-1.8) 07/25/20 04:32 Lymph # (Auto) 2.4 K/mm3 (1.2-5.4) 07/25/20 04:32 [place] # (Auto) 1.1 K/mm3 (0.0-0.8) H 07/25/20 04:32 Eos # (Auto) 0.1 K/mm3 (0.0-0.4) 07/25/20 04:32 Baso # (Auto) 0.2 K/mm3 (0.0-0.1) H 07/25/20 04:32 Seg Neutrophils % 70.2 % (40.0-70.0) H 07/25/20 04:32 Seg Neutrophils # 8.8 K/mm3 (1.8-7.7) H 07/25/20 04:32 PT 11.4 Sec. (12.2-14.9) L 07/24/20 09:01 INR 0.85 (0.87-1.13) L 07/24/20 09:01 APTT 36.9 Sec. (24.2-36.6) H 07/24/20 09:01 Sodium 142 mmol/L (137-145) 07/25/20 04:32 Potassium 3.9 mmol/L (3.6-5.0) 07/25/20 04:32 Chloride 104.8 mmol/L (98-107) 07/25/20 04:32 Carbon Dioxide 24 mmol/L (22-30) D 07/25/20 04:32 Anion Gap 17 mmol/L 07/25/20 04:32 BUN 18 mg/dL (9-20) 07/25/20 04:32 Creatinine 0.9 mg/dL (0.8-1.3) 07/25/20 04:32 Estimated GFR > 60 ml/min 07/25/20 04:32 BUN/Creatinine Ratio 20 % 07/25/20 04:32 Glucose 112 mg/dL (75-100) H 07/25/20 04:32 Calcium 8.6 mg/dL (8.4-10.2) 07/25/20 04:32 Total Creatine Kinase 1368 units/L (55-170) H 07/25/20 04:32 CK-MB (CK-2) 128.0 ng/mL (0.0-4.0) H 07/25/20 04:32 CK-MB (CK-2) Rel Index 9.3 (0-4) H 07/25/20 04:32 Troponin T 1.490 ng/mL (0.00-0.029) H* 07/25/20 04:32 NT-Pro-B Natriuret Pep 396.8 pg/mL (0-900) 07/24/20 09:01 Triglycerides 251 mg/dL (2-149) H 07/24/20 09:01 Cholesterol 346 mg/dL (50-199) H 07/24/20 09:01 LDL Cholesterol Direct 267 mg/dL (50-130) H 07/24/20 09:01 HDL Cholesterol 69 mg/dL (40-59) H 07/24/20 09:01 Cholesterol/HDL Ratio 5.01 % 02/14/21 09:01 Blood Type O POSITIVE 07/24/20 09:01 Antibody Screen Negative 07/24/20 09:01 - Diagnostic Impressions Diagnostic Impressions: Echocardiogram 07/24/20 12:45 Transthoracic Echocardiogram Indication: Acute GA BP: 97/65 HR: 70 Conclusions *Global left ventricular systolic function is normal. *The estimated ejection fraction is 50-55%. *Mild concentric left ventricular hypertrophy is observed. *There is trace of aortic regurgitation. *There is trace of mitral regurgitation. *There is trace tricuspid regurgitation. Findings Left Ventricle: The left ventricular chamber size is normal. Mild concentric left ventricular hypertrophy is observed. Global left ventricular systolic function is normal. The estimated ejection fraction is 50-55%. Left Atrium: The left atrial chamber size is normal. Right Ventricle: The right ventricular cavity size is normal. The right ventricular global systolic function is normal. Right Atrium: The right atrial cavity size is normal. Aortic Valve: The aortic valve is trileaflet. The aortic valve leaflets are moderately thickened. There is trace of aortic regurgitation. There is no evidence of aortic stenosis. Mitral Valve: The mitral valve leaflets are mildly thickened. There is trace of mitral regurgitation. There is no evidence of mitral stenosis. Tricuspid Valve: The tricuspid valve leaflets are normal. There is trace tricuspid regurgitation. No pulmonary hypertension is noted. Pulmonic Valve: There is trace pulmonic regurgitation. Pericardium: There is no pericardial effusion. Aorta: There is no dilatation of the ascending aorta. There is no dilatation of the aortic root. Venous: The inferior vena cava appears normal in size. Measurements Chambers 2D Name Value Normal Range IVSd (2D) 0.89 cm (0.6 - 1.1) LVPWd (2D) 0.97 cm (0.6 - 1.1) LVIDd (2D) 4.43 cm (3.7 - 5.6) LVIDs (2D) 2.98 cm (2 - 3.8) LV FS (2D) 32.79 % - EF Teichholz (2D) 61.44 % - Ao root diameter (2D) 3.04 cm (2 - 3.7) Volumes/Mass Name Value Normal Range LA ESV SP 4CH (A/L) 38.17 ml - LA ESV SP 2CH (A/L) 30.89 ml - LA ESV BP (A/L) 36.36 ml - LA ESV BP (A/L) index 20.66 ml/m2 - LA ESV SP 4CH (MOD) 35.41 ml - LA ESV SP 2CH (MOD) 28.25 ml - LA ESV BP (MOD) 33.42 ml - LA ESV BP (MOD) index 18.99 ml/m2 - Diastolic/Systolic Function Name Value Normal Range MV E-wave Vmax 0.68 m/sec - MV deceleration time 175.16 msec - MV A-wave Vmax 0.79 m/sec - MV E:A ratio 0.85 ratio - Aortic Valve Name Value Normal Range AV Vmax 1.36 m/sec - AV VTI 27.9 cm - AV peak gradient 7.35 mmHg - AV mean gradient 3.89 mmHg - LVOT diameter 1.54 cm - LVOT Vmax 0.97 m/sec - LVOT VTI 19.1 cm - LVOT peak gradient 3.75 mmHg - LVOT mean gradient 1.98 mmHg - SV LVOT 35.35 ml - GIANNA (continuity Vmax) 1.32 cm2 - GIANNA (continuity VTI) 1.27 cm2 - AR PHT 1408.02 msec - AR peak gradient 43.19 mmHg - Tricuspid Valve Name Value Normal Range TR Vmax 2.14 m/sec - TR peak gradient 18 mmHg - RAP 3 mmHg - RVSP 21 mmHg - IVC diameter 1.83 cm (1.2 - 2.3) Pulmonic Valve/Qp:Qs Name Value Normal Range PV Vmax 0.89 m/sec - PV peak gradient 3.18 mmHg - PV acceleration time 60.89 msec - Dsouza/IV: Voiding Method Urinal Active Medications - Current Medications Current Medications: Generic Name Dose Route Start Last Admin Trade Name Freq PRN Reason Stop Dose Admin Acetaminophen 650 mg 07/25/20 03:47 07/25/20 03:57 Acetaminophen 325 Mg Tab PO 650 mg Q6H PRN Administration Pain, Mild (1-3) Hydrocodone Bitart/Acetaminophen 1 each 07/24/20 12:32 07/25/20 00:55 Hydrocodone/Acetaminophen 5-325 Mg Tab PO 1 each Q6H PRN Administration Pain, Moderate (4-6) Aspirin 325 mg 07/25/20 10:00 07/25/20 09:14 Aspirin Ec 325 Mg Tab PO 325 mg QDAY KATI Administration Clopidogrel Bisulfate 75 mg 07/25/20 10:00 07/25/20 09:14 Clopidogrel 75 Mg Tab PO 75 mg QDAY KATI Administration Isosorbide Mononitrate 30 mg 07/24/20 13:00 07/25/20 09:14 Isosorbide Mononitrate Er 30 Mg Tab PO 30 mg QDAY KATI Administration Losartan Potassium 25 mg 07/24/20 13:00 07/25/20 09:14 Losartan 25 Mg Tab PO 25 mg QDAY KATI Administration Metoprolol Tartrate 50 mg 07/24/20 13:00 07/25/20 09:14 Metoprolol Tartrate 50 Mg Tab PO 50 mg BID KATI Administration
--- NOTE | 2020-07-25 12:21 | Consultation ---
History of Present Illness - Reason for Consult Consult date: 07/25/20 sTEMI - History of Present Illness 60 year old with a medical history of CAD s/p stents who presented to the ED with a chief complaint of chest pain. He states his chest pain started on the day prior to presentation. It was located mainly around the substernal area and was radiating to the jaw intermittently. Due to persistent symptoms, he called the EMS today. On arrival, EMS performed an EKG which showed inferior wall STEMI and a STEMI code was initiated after confirmation with the brainer. He had left cath that showed patent proximal to mid right coronary stent but more distally, the vessel was occluded. Angioplasty with stent placement was performed successfully. 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 Past History Past Medical History: acute RI, hypertension Past Surgical History: PTCA, Other (Coronary stent) Medications and Allergies Allergies Allergy/AdvReac Type Severity Reaction Status Date / Time [id number]-Cfa Reductase Allergy Unknown Verified 07/24/20 08:58 Inhibitor Home Medications Medication Instructions Recorded Confirmed Last Taken Type Aspirin [Adult Aspirin] 162 mg PO DAILY 07/24/20 07/24/20 Unknown History Active Meds: Active Medications Acetaminophen (Acetaminophen 325 Mg Tab) 650 mg PO Q6H PRN PRN Reason: Pain, Mild (1-3) Last Admin: 07/25/20 03:57 Dose: 650 mg Documented by: Hydrocodone Bitart/Acetaminophen (Hydrocodone/Acetaminophen 5-325 Mg Tab) 1 each PO Q6H PRN PRN Reason: Pain, Moderate (4-6) Last Admin: 07/25/20 00:55 Dose: 1 each Documented by: Aspirin (Aspirin Ec 325 Mg Tab) 325 mg PO QDAY [facility] Last Admin: 07/25/20 09:14 Dose: 325 mg Documented by: Clopidogrel Bisulfate (Clopidogrel 75 Mg Tab) 75 mg PO QDAY [facility] Last Admin: 07/25/20 09:14 Dose: 75 mg Documented by: Isosorbide Mononitrate (Isosorbide Mononitrate Er 30 Mg Tab) 30 mg PO QDAY [facility] Last Admin: 07/25/20 09:14 Dose: 30 mg Documented by: Losartan Potassium (Losartan 25 Mg Tab) 25 mg PO QDAY [facility] Last Admin: 07/25/20 09:14 Dose: 25 mg Documented by: Metoprolol Tartrate (Metoprolol Tartrate 50 Mg Tab) 50 mg PO BID KATI Last Admin: 07/25/20 09:14 Dose: 50 mg Documented by: Review of Systems All systems: negative Exam - Constitutional Vitals: Temp Pulse Resp BP Pulse Ox 98 F 70 21 140/85 98 07/25/20 08:00 07/25/20 12:00 07/25/20 12:00 07/25/20 12:00 07/25/20 12:00 Results - Labs CBC & Chem 7: 07/25/20 04:32 07/25/20 04:32 Labs: Abnormal lab results 07/24/20 07/25/20 07/25/20 Range/Units 16:05 04:32 04:32 WBC 12.5 H (4.5-11.0) K/mm3 RDW 13.1 L (13.2-15.2) % [place] % (Auto) 8.6 H (0.0-7.3) % [place] # (Auto) 1.1 H (0.0-0.8) K/mm3 Baso # (Auto) 0.2 H (0.0-0.1) K/mm3 Seg Neutrophils % 70.2 H (40.0-70.0) % Seg Neutrophils # 8.8 H (1.8-7.7) K/mm3 Glucose 112 H (75-100) mg/dL Total Creatine Kinase 1144 H 1368 H (55-170) units/L CK-MB (CK-2) 187.9 H 128.0 H (0.0-4.0) ng/mL CK-MB (CK-2) Rel Index 16.4 H 9.3 H (0-4) Troponin T 1.350 H* D 1.490 H* (0.00-0.029) ng/mL - Imaging and Cardiology Chest x-ray: image reviewed Assessment and Plan 60 y/o morbidly obese male with STEMI 1. Goal directed therapy 2. Lifestyle modifications including weight loss and exercise 3. Suggest a trial of statins while in house to observe reaction as patient greatly would benefit from this therapy 4. Appears stable from a critical care standpoint, will ask [facility]MS about transfer to telemetry.
[2020-07-26 05:31] LABS: Hematocrit 42.2 % (35.5-45.6); Hemoglobin 14.5 gm/dl (11.8-15.2)
[2020-07-26] MEDS ORDERED: METOPROLOL TARTRATE 50 MG TAB PO SCH (07:49)
[2020-07-26 09:09] LABS: Hematocrit 42.9 % (35.5-45.6); Hemoglobin 14.8 gm/dl (11.8-15.2); Mean Corpuscular HGB Conc 35 % (32-34); Mean Corpuscular Volume 90 fl (84-94); Platelet Count 282 K/mm3 (140-440); Red Blood Count 4.77 M/mm3 (3.65-5.03); Red Cell Distribution Width 12.9 % (13.2-15.2)
[2020-07-26 09:15] LABS: BUN/Creatinine Ratio 21; Blood Urea Nitrogen 17 mg/dL (9-20); Calcium 8.5 mg/dL (8.4-10.2); Hemolysis Index 5
--- NOTE | 2020-07-26 09:16 | Discharge Summary ---
Providers - Providers Date of Admission: 07/24/20 09:38 Attending physician: SUSIE DIAZ MD 07/24/20 Consult to Cardiac Rehabilitation [CONS] Routine Reason For Exam: post pci 07/25/20 08:50 Consult to Physician [CONS] Routine Comment: Consulting Provider: JORGE POLLARD Physician Instructions: Reason For Exam: ICU admission Primary care physician: HOLTER SCANNING TECHNICIAN Hospitalization Reason for admission: ID Condition: Stable Hospital course: 60 year old with a medical history of CAD s/p stents who presented to the ED with a chief complaint of chest pain. He states his chest pain started on the day prior to presentation. It was located mainly around the substernal area and was radiating to the jaw intermittently. Due to persistent symptoms, he called the EMS today. On arrival, EMS performed an EKG which showed inferior wall STEMI and a STEMI code was initiated after confirmation with the chucking and sawing machine operator. He had left cath that showed patent proximal to mid right coronary stent but more distally, the vessel was occluded. Angioplasty with stent placement was performed successfully. 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 07/26: Patient today clinically doing well no new complaints no dizziness. He verbalized understanding of his current medical diagnosis and procedure was done and will follow up with chucking and sawing machine operator outpatient. Lifestyle modification has been discussed with him in detail Problems CAD with STEMI -s/p PCI with stent placement -Continue aspirin -Patient allergic to statins -Cardiology recs appreciated -Echo - LVH with normal EF Hyperlipidemia -Patient is allergic to statins -Check hemoglobin A1c -Lifestyle modification Disposition: DC-01 TO HOME OR SELFCARE Time spent for discharge: 35 mins Core Measure Documentation - Palliative Care Palliative Care/ Comfort Measures: Not Applicable - Core Measures Any of the following diagnoses?: acute ID - Acute ID Discharge Requirements Aspirin at discharge: Yes MAGY/ARB for LVSD if EF <40%: Yes Beta yoselin at discharge: Yes Statin for LDL = or >100 mg/dl on DC: No Reason for no statin on DC: Statins contraindicated Exam - Physical Exam Narrative exam: VITAL SIGNS: Reviewed. GENERAL: The patient appears normally developed, Vital signs as documented. HEAD: No signs of head trauma. EYES: Pupils are equal. Extraocular motions intact. EARS: Hearing grossly intact. MOUTH: Oropharynx is normal. NECK: No adenopathy, no JVD. CHEST: Chest with clear breath sounds bilaterally. No wheezes, rales, or rhonchi. CARDIAC: Regular rate and rhythm. S1 and S2, without murmurs, gallops, or rubs. VASCULAR: No Edema. Peripheral pulses normal and equal in all extremities. ABDOMEN: Soft, non tender and non distended. No rebound or guarding, and no masses palpated. Bowel Sounds normal. MUSCULOSKELETAL: Good range of motion of all major joints. Extremities without clubbing, cyanosis or edema. NEUROLOGIC EXAM: Alert and oriented x 3 No focal sensory or strength deficits. Speech normal. Follows commands. PSYCHIATRIC: Mood normal. SKIN: detail exam as documented in skin assessment - Constitutional Vitals: Temp Pulse Resp BP Pulse Ox 98.4 F 77 16 102/66 93 07/26/20 08:43 07/26/20 08:43 07/26/20 08:43 07/26/20 08:43 07/26/20 08:43 Plan Activity: advance as tolerated, fall precautions Diet: low fat Special Instructions: record daily weights, record daily BP diary, smoking billy sation Follow up with: ARIADNA BRIZUELA MD [Staff Physician] - 7 Days PRIMARY CARE, [Primary Care Provider] - 3-5 Days Prescriptions: Losartan [Cozaar] 12.5 mg PO QDAY #30 tablet Aspirin EC [Ecotrin] 325 mg PO QDAY #30 tablet ISOSORBIDE MONOnitrate [Imdur ER] 30 mg PO QDAY #30 tablet Metoprolol [Lopressor TAB] 25 mg PO BID #60 tablet Clopidogrel [Plavix] 75 mg PO QDAY #30 tablet Ezetimibe [Zetia] 10 mg PO DAILY #30 tablet
[2020-07-26] MEDS: METOPROLOL TARTRATE 25 MG TAB PO SCH ×2 (10:15→22:08)
[2020-07-26] MEDS: LOSARTAN 25 MG TAB PO SCH (10:15)
[2020-07-26] MEDS: ASPIRIN EC 325 MG TAB PO SCH (10:15)
[2020-07-26] MEDS: CLOPIDOGREL 75 MG TAB PO SCH (10:15)
--- NOTE | 2020-07-26 10:26 | Progress Note ---
Assessment and Plan Assessment and plan: 60 year old with a medical history of CAD s/p stents who presented to the ED with a chief complaint of chest pain. He states his chest pain started on the day prior to presentation. It was located mainly around the substernal area and was radiating to the jaw intermittently. Due to persistent symptoms, he called the EMS today. On arrival, EMS performed an EKG which showed inferior wall STEMI and a STEMI code was initiated after confirmation with the women's apparel salesperson. He had left cath that showed patent proximal to mid right coronary stent but more distally, the vessel was occluded. Angioplasty with stent placement was performed successfully. 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 07/26: Patient today clinically doing well no new complaints no dizziness. He verbalized understanding of his current medical diagnosis and procedure was done and will follow up with women's apparel salesperson outpatient. Lifestyle modification has been discussed with him in detail Discussed with women's apparel salesperson they are still concerned about the lesion on the LAD may need to be stented prior to discharge and follow-up with cardiology and possible need for cardio thoracic evaluation. We will start the patient on Ezitemibe for hyperlipidemia CAD with STEMI -s/p PCI with stent placement -Continue aspirin -Patient allergic to statins -Cardiology recs appreciated -Echo - LVH with normal EF Hyperlipidemia -Patient is allergic to statins -Check hemoglobin A1c -Lifestyle modification History Interval history: Patient seen and examined, resting comfortable, no new complaints. Hospitalist Physical - Physical exam Narrative exam: VITAL SIGNS: Reviewed. GENERAL: The patient appears normally developed, Vital signs as documented. HEAD: No signs of head trauma. EYES: Pupils are equal. Extraocular motions intact. EARS: Hearing grossly intact. MOUTH: Oropharynx is normal. NECK: No adenopathy, no JVD. CHEST: Chest with clear breath sounds bilaterally. No wheezes, rales, or r honchi. CARDIAC: Regular rate and rhythm. S1 and S2, without murmurs, gallops, or rubs. VASCULAR: No Edema. Peripheral pulses normal and equal in all extremities. ABDOMEN: Soft, non tender and non distended. No rebound or guarding, and no masses palpated. Bowel Sounds normal. MUSCULOSKELETAL: Good range of motion of all major joints. Extremities without clubbing, cyanosis or edema. NEUROLOGIC EXAM: Alert and oriented x 3 No focal sensory or strength deficits. Speech normal. Follows commands. PSYCHIATRIC: Mood normal. SKIN: detail exam as documented in skin assessment - Constitutional Vitals: Temp Pulse Resp BP Pulse Ox 98.4 F 77 16 102/66 93 07/26/20 08:43 07/26/20 08:43 07/26/20 08:43 07/26/20 08:43 07/26/20 08:43 General appearance: Present: no acute distress HEART Score - HEART Score EKG: Significant ST-depression Age: 45-65 Risk factors: > 3 risk factors or hx of atherosclerotic disease Troponin: Troponin T 1.490 ng/mL (0.00-0.029) H* 07/25/20 04:32 Troponin: 1-3x normal limit - Critical Actions Critical Actions: >7 pts:50-65% risk of adverse cardiac event. Early invasive measures Results - Labs CBC & Chem 7: 07/26/20 08:10 07/26/20 08:10 Labs: Laboratory Last Values WBC 10.0 K/mm3 (4.5-11.0) 07/26/20 08:10 RBC 4.77 M/mm3 (3.65-5.03) 07/26/20 08:10 Hgb 14.8 gm/dl (11.8-15.2) 07/26/20 08:10 Hct 42.9 % (35.5-45.6) 07/26/20 08:10 MCV 90 fl (84-94) 07/26/20 08:10 MCH 31 pg (28-32) 07/26/20 08:10 MCHC 35 % (32-34) H 07/26/20 08:10 RDW 12.9 % (13.2-15.2) L 07/26/20 08:10 Plt Count 282 K/mm3 (140-440) 07/26/20 08:10 Lymph % (Auto) 19.1 % (13.4-35.0) 07/25/20 04:32 Smyth % (Auto) 8.6 % (0.0-7.3) H 07/25/20 04:32 Eos % (Auto) 0.8 % (0.0-4.3) 07/25/20 04:32 Baso % (Auto) 1.3 % (0.0-1.8) 07/25/20 04:32 Lymph # (Auto) 2.4 K/mm3 (1.2-5.4) 07/25/20 04:32 Smyth # (Auto) 1.1 K/mm3 (0.0-0.8) H 07/25/20 04:32 Eos # (Auto) 0.1 K/mm3 (0.0-0.4) 07/25/20 04:32 Baso # (Auto) 0.2 K/mm3 (0.0-0.1) H 07/25/20 04:32 Seg Neutrophils % 70.2 % (40.0-70.0) H 07/25/20 04:32 Seg Neutrophils # 8.8 K/mm3 (1.8-7.7) H 07/25/20 04:32 PT 11.4 Sec. (12.2-14.9) L 07/24/20 09:01 INR 0.85 (0.87-1.13) L 07/24/20 09:01 APTT 36.9 Sec. (24.2-36.6) H 07/24/20 09:01 Sodium 139 mmol/L (137-145) 07/26/20 08:10 Potassium 3.7 mmol/L (3.6-5.0) 07/26/20 08:10 Chloride 102.7 mmol/L (98-107) 07/26/20 08:10 Carbon Dioxide 26 mmol/L (22-30) 07/26/20 08:10 Anion Gap 14 mmol/L 07/26/20 08:10 BUN 17 mg/dL (9-20) 07/26/20 08:10 Creatinine 0.8 mg/dL (0.8-1.3) 07/26/20 08:10 Estimated GFR > 60 ml/min 07/26/20 08:10 BUN/Creatinine Ratio 21 % 07/26/20 08:10 Glucose 102 mg/dL (75-100) H 07/26/20 08:10 POC Glucose 97 mg/dL (70-105) 07/26/20 07:29 Hemoglobin A1c 5.5 % (4-6) 07/26/20 05:14 Calcium 8.5 mg/dL (8.4-10.2) 07/26/20 08:10 Total Creatine Kinase 1368 units/L (55-170) H 07/25/20 04:32 CK-MB (CK-2) 128.0 ng/mL (0.0-4.0) H 07/25/20 04:32 CK-MB (CK-2) Rel Index 9.3 (0-4) H 07/25/20 04:32 Troponin T 1.490 ng/mL (0.00-0.029) H* 07/25/20 04:32 NT-Pro-B Natriuret Pep 396.8 pg/mL (0-900) 07/24/20 09:01 Triglycerides 251 mg/dL (2-149) H 07/24/20 09:01 Cholesterol 346 mg/dL (50-199) H 07/24/20 09:01 LDL Cholesterol Direct 267 mg/dL (50-130) H 07/24/20 09:01 HDL Cholesterol 69 mg/dL (40-59) H 07/24/20 09:01 Cholesterol/HDL Ratio 5.01 % 07/24/20 09:01 Blood Type O POSITIVE 07/24/20 09:01 Antibody Screen Negative 07/24/20 09:01 - Diagnostic Impressions Diagnostic Impressions: Echocardiogram 07/24/20 12:45 Transthoracic Echocardiogram Indication: Acute [place] BP: 97/65 HR: 70 Conclusions *Global left ventricular systolic function is normal. *The estimated ejection fraction is 50-55%. *Mild concentric left ventricular hypertrophy is observed. *There is trace of aortic regurgitation. *There is trace of mitral regurgitation. *There is trace tricuspid regurgitation. Findings Left Ventricle: The left ventricular chamber size is normal. Mild concentric left ventricular hypertrophy is observed. Global left ventricular systolic function is normal. The estimated ejection fraction is 50-55%. Left Atrium: The left atrial chamber size is normal. Right Ventricle: The right ventricular cavity size is normal. The right ventricular global systolic function is normal. Right Atrium: The right atrial cavity size is normal. Aortic Valve: The aortic valve is trileaflet. The aortic valve leaflets are moderately thickened. There is trace of aortic regurgitation. There is no evidence of aortic stenosis. Mitral Valve: The mitral valve leaflets are mildly thickened. There is trace of mitral regurgitation. There is no evidence of mitral stenosis. Tricuspid Valve: The tricuspid valve leaflets are normal. There is trace tricuspid regurgitation. No pulmonary hypertension is noted. Pulmonic Valve: There is trace pulmonic regurgitation. Pericardium: There is no pericardial effusion. Aorta: There is no dilatation of the ascending aorta. There is no dilatation of the aortic root. Venous: The inferior vena cava appears normal in size. Measurements Chambers 2D Name Value Normal Range IVSd (2D) 0.89 cm (0.6 - 1.1) LVPWd (2D) 0.97 cm (0.6 - 1.1) LVIDd (2D) 4.43 cm (3.7 - 5.6) LVIDs (2D) 2.98 cm (2 - 3.8) LV FS (2D) 32.79 % - EF Teichholz (2D) 61.44 % - Ao root diameter (2D) 3.04 cm (2 - 3.7) Volumes/Mass Name Value Normal Range LA ESV SP 4CH (A/L) 38.17 ml - LA ESV SP 2CH (A/L) 30.89 ml - LA ESV BP (A/L) 36.36 ml - LA ESV BP (A/L) index 20.66 ml/m2 - LA ESV SP 4CH (MOD) 35.41 ml - LA ESV SP 2CH (MOD) 28.25 ml - LA ESV BP (MOD) 33.42 ml - LA ESV BP (MOD) index 18.99 ml/m2 - Diastolic/Systolic Function Name Value Normal Range MV E-wave Vmax 0.68 m/sec - MV deceleration time 175.16 msec - MV A-wave Vmax 0.79 m/sec - MV E:A ratio 0.85 ratio - Aortic Valve Name Value Normal Range AV Vmax 1.36 m/sec - AV VTI 27.9 cm - AV peak gradient 7.35 mmHg - AV mean gradient 3.89 mmHg - LVOT diameter 1.54 cm - LVOT Vmax 0.97 m/sec - LVOT VTI 19.1 cm - LVOT peak gradient 3.75 mmHg - LVOT mean gradient 1.98 mmHg - SV LVOT 35.35 ml - GIANNA (continuity Vmax) 1.32 cm2 - GIANNA (continuity VTI) 1.27 cm2 - AR PHT 1408.02 msec - AR peak gradient 43.19 mmHg - Tricuspid Valve Name Value Normal Range TR Vmax 2.14 m/sec - TR peak gradient 18 mmHg - RAP 3 mmHg - RVSP 21 mmHg - IVC diameter 1.83 cm (1.2 - 2.3) Pulmonic Valve/Qp:Qs Name Value Normal Range PV Vmax 0.89 m/sec - PV peak gradient 3.18 mmHg - PV acceleration time 60.89 msec - Dsouza/IV: Voiding Method Urinal Active Medications - Current Medications Current Medications: Generic Name Dose Route Start Last Admin Trade Name Freq PRN Reason Stop Dose Admin Acetaminophen 650 mg 07/25/20 03:47 07/25/20 18:19 Acetaminophen 325 Mg Tab PO 650 mg Q6H PRN Administration Pain, Mild (1-3) Hydrocodone Bitart/Acetaminophen 1 each 07/24/20 12:32 07/25/20 00:55 Hydrocodone/Acetaminophen 5-325 Mg Tab PO 1 each Q6H PRN Administration Pain, Moderate (4-6) Aspirin 325 mg 07/25/20 10:00 07/26/20 10:15 Aspirin Ec 325 Mg Tab PO 325 mg QDAY KATI Administration Clopidogrel Bisulfate 75 mg 07/25/20 10:00 07/26/20 10:15 Clopidogrel 75 Mg Tab PO 75 mg QDAY KATI Administration Isosorbide Mononitrate 30 mg 07/24/20 13:00 07/26/20 10:14 Isosorbide Mononitrate Er 30 Mg Tab PO 30 mg QDAY KATI Administration Losartan Potassium 12.5 mg 07/26/20 10:00 07/26/20 10:15 Losartan 25 Mg Tab PO 12.5 mg QDAY KATI Administration Metoprolol Tartrate 25 mg 07/26/20 10:00 07/26/20 10:15 Metoprolol Tartrate 25 Mg Tab PO 25 mg BID KATI Administration
--- NOTE | 2020-07-26 11:10 | Progress Note ---
Assessment and Plan Acute inferior ST elevation myocardial infarction s/p PCI of the distal RCA occlusion LVEF 50-55% by echo Hx of coronary artery disease Hyperlipidemia with an LDL of 267 statin allergy Noncompliant with medical therapy and outpatient cardiac follow up Recommendations: Continue medical therapy for coronary artery disease. Will plan for 2nd vessel PCI of the LAD tomorrow. Subjective Date of service: 07/26/20 Interval history: Patient appears comfortable. No cardiac complaints. Objective Vital Signs Temp Pulse Pulse Resp BP BP Pulse Ox 07/26/20 08:43 98.4 F 77 16 102/66 93 07/26/20 08:12 96 07/26/20 04:00 74 84 20 97 07/26/20 03:53 99.0 F 74 16 96/60 95 07/26/20 00:00 67 84 20 97 07/25/20 23:12 99.1 F 67 16 103/62 95 07/25/20 22:00 95 07/25/20 21:50 90 12 138/83 96 07/25/20 21:41 73 19 138/83 94 07/25/20 21:31 75 19 138/83 96 07/25/20 21:27 72 14 138/83 93 07/25/20 21:21 70 20 138/83 95 07/25/20 21:17 96 07/25/20 21:11 70 15 138/83 95 07/25/20 21:04 75 15 138/83 96 07/25/20 21:01 85 22 138/83 93 07/25/20 20:51 94 H 17 136/88 94 07/25/20 20:41 73 19 136/88 96 07/25/20 20:31 72 19 136/88 94 07/25/20 20:21 78 19 94 07/25/20 20:10 79 20 136/88 93 07/25/20 20:00 78 81 20 136/88 94 07/25/20 19:50 77 17 136/82 94 07/25/20 19:40 77 22 136/82 94 07/25/20 19:38 97.8 F 07/25/20 19:30 87 15 136/82 96 07/25/20 19:20 86 19 136/82 95 07/25/20 19:10 89 20 136/82 94 07/25/20 19:00 86 22 136/82 94 07/25/20 18:50 82 20 142/83 95 07/25/20 18:40 85 15 142/83 95 07/25/20 18:30 80 22 153/100 95 07/25/20 18:20 86 14 153/100 92 07/25/20 18:10 88 13 153/100 97 07/25/20 18:01 81 16 142/83 97 07/25/20 17:50 77 14 153/100 97 07/25/20 17:40 75 14 153/100 98 07/25/20 17:30 82 12 153/100 98 07/25/20 17:20 80 16 153/100 98 07/25/20 17:10 79 9 L 153/100 97 07/25/20 17:00 77 13 136/78 96 07/25/20 16:50 84 15 136/78 96 07/25/20 16:40 76 21 136/78 96 07/25/20 16:30 82 21 136/78 95 07/25/20 16:20 76 12 136/78 96 07/25/20 16:10 76 24 136/78 97 07/25/20 16:00 99 F 78 20 136/78 96 07/25/20 15:50 79 17 135/78 97 07/25/20 15:40 81 17 135/78 90 07/25/20 15:30 81 20 135/78 97 07/25/20 15:20 88 16 135/78 96 07/25/20 15:10 87 16 135/78 97 07/25/20 15:00 83 23 135/78 94 07/25/20 14:50 84 19 129/80 95 07/25/20 14:40 84 22 129/80 93 07/25/20 14:30 82 19 129/80 94 07/25/20 14:20 84 21 129/80 94 07/25/20 14:10 83 20 129/80 95 07/25/20 14:00 78 21 129/80 95 07/25/20 13:50 75 19 149/88 96 07/25/20 13:40 85 12 149/88 96 07/25/20 13:30 85 20 149/88 97 07/25/20 13:20 80 16 149/88 98 07/25/20 13:10 80 23 149/88 97 07/25/20 13:00 76 23 149/88 98 02/15/21 12:50 76 13 140/85 98 07/25/20 12:40 76 10 L 140/85 98 07/25/20 12:30 71 12 140/85 97 07/25/20 12:20 74 10 L 140/85 98 07/25/20 12:10 76 18 140/85 97 07/25/20 12:00 98 F 70 21 140/85 98 07/25/20 11:56 74 75 18 97 07/25/20 11:50 73 19 142/81 95 07/25/20 11:40 71 13 142/81 96 07/25/20 11:30 72 20 142/81 95 07/25/20 11:20 71 23 142/81 95 07/25/20 11:10 70 13 142/81 97 - Physical Examination General: No Apparent Distress HEENT: Positive: PERRL Neck: Positive: neck supple Cardiac: Positive: Reg Rate and Rhythm Lungs: Positive: Decreased Breath Sounds Neuro: Positive: Grossly Intact Abdomen: Positive: Soft Extremities: Absent: edema - Labs and Meds CBC 07/26/20 07/26/20 Range/Units 05:14 08:10 WBC 10.0 (4.5-11.0) K/mm3 RBC 4.77 (3.65-5.03) M/mm3 Hgb 14.5 14.8 (11.8-15.2) gm/dl Hct 42.2 42.9 (35.5-45.6) % Plt Count 266 282 (140-440) K/mm3 Comprehensive Metabolic Panel 07/26/20 Range/Units 08:10 Sodium 139 (137-145) mmol/L Potassium 3.7 (3.6-5.0) mmol/L Chloride 102.7 (98-107) mmol/L Carbon Dioxide 26 (22-30) mmol/L BUN 17 (9-20) mg/dL Creatinine 0.8 (0.8-1.3) mg/dL Glucose 102 H (75-100) mg/dL Calcium 8.5 (8.4-10.2) mg/dL
[2020-07-26] MEDS: HYDROcodone/ACETAMINOPHEN 5-325 MG TAB PO PRN (12:29)
[2020-07-27 05:47] LABS: Basophils # (Auto) 0.1 K/mm3 (0.0-0.1); Basophils % (Auto) 0.8 % (0.0-1.8); Eosinophils # (Auto) 0.6 K/mm3 (0.0-0.4); Eosinophils % (Auto) 6.9 % (0.0-4.3); Hematocrit 42.1 % (35.5-45.6); Hemoglobin 14.7 gm/dl (11.8-15.2); Lymphocytes % (Auto) 21.3 % (13.4-35.0); Mean Corpuscular HGB Conc 35 % (32-34); Mean Corpuscular Volume 89 fl (84-94); Monocytes # (Auto) 0.7 K/mm3 (0.0-0.8); Monocytes % (Auto) 7.8 % (0.0-7.3); Platelet Count 288 K/mm3 (140-440); Red Blood Count 4.71 M/mm3 (3.65-5.03); Red Cell Distribution Width 12.4 % (13.2-15.2)
[2020-07-27 06:01] LABS: BUN/Creatinine Ratio 23; Blood Urea Nitrogen 21 mg/dL (9-20); Calcium 8.6 mg/dL (8.4-10.2); Hemolysis Index 7
[2020-07-27 06:05] LABS: INR 0.89 (0.87-1.13)
[2020-07-27] MEDS: CLOPIDOGREL 75 MG TAB PO SCH (09:55)
[2020-07-27] MEDS: ASPIRIN EC 325 MG TAB PO SCH (09:55)
[2020-07-27] MEDS ORDERED: HEPARIN/NS 5000 UNIT/500ML 1,000 ML IR ONE (11:44)
--- NOTE | 2020-07-27 11:49 | Progress Note ---
Assessment and Plan Assessment and plan: 60 year old with a medical history of CAD s/p stents who presented to the ED with a chief complaint of chest pain. He states his chest pain started on the day prior to presentation. It was located mainly around the substernal area and was radiating to the jaw intermittently. Due to persistent symptoms, he called the EMS today. On arrival, EMS performed an EKG which showed inferior wall STEMI and a STEMI code was initiated after confirmation with the landscape crew leader. He had left cath that showed patent proximal to mid right coronary stent but more distally, the vessel was occluded. Angioplasty with stent placement was performed successfully. 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 07/26: Patient today clinically doing well no new complaints no dizziness. He verbalized understanding of his current medical diagnosis and procedure was done and will follow up with landscape crew leader outpatient. Lifestyle modification has been discussed with him in detail Discussed with landscape crew leader they are still concerned about the lesion on the LAD may need to be stented prior to discharge and follow-up with cardiology and possible need for cardio thoracic evaluation. We will start the patient on Ezitemibe for hyperlipidemia 07/27: Patient clinically stable this morning no new chest pain. He is for second PCI today due to 75% stenosis of the mid to distal LAD. Plan discussed with the patient also compliance with medications the patient verbalized understanding. 15 minutes of Acute [address] ST elevation myocardial infarction s/p PCI of the distal RCA occlusion LVEF 50-55% by echo Hx of coronary artery disease Hyperlipidemia with an LDL of 267 statin allergy Noncompliant with medical therapy and outpatient cardiac follow up History Interval history: Patient seen and examined, resting comfortable, no new complaints. For second PCI today Hospitalist Physical - Physical exam Narrative exam: VITAL SIGNS: Reviewed. GENERAL: The patient appears normally developed, Vital signs as documented. HEAD: No signs of head trauma. EYES: Pupils are equal. Extraocular motions intact. EARS: Hearing grossly intact. MOUTH: Oropharynx is normal. NECK: No adenopathy, no JVD. CHEST: Chest with clear breath sounds bilaterally. No wheezes, rales, or rhonchi. CARDIAC: Regular rate and rhythm. S1 and S2, without murmurs, gallops, or rubs. VASCULAR: No Edema. Peripheral pulses normal and equal in all extremities. ABDOMEN: Soft, non tender and non distended. No rebound or guarding, and no masses palpated. Bowel Sounds normal. MUSCULOSKELETAL: Good range of motion of all major joints. Extremities without clubbing, cyanosis or edema. NEUROLOGIC EXAM: Alert and oriented x 3 No focal sensory or strength deficits. Speech normal. Follows commands. PSYCHIATRIC: Mood normal. SKIN: detail exam as documented in skin assessment - Constitutional Vitals: Temp Pulse Resp BP Pulse Ox 98.0 F 75 18 117/81 96 07/27/20 07:24 07/27/20 10:00 07/27/20 07:24 07/27/20 07:24 07/27/20 07:24 General appearance: Present: no acute distress HEART Score - HEART Score EKG: Significant ST-depression Age: 45-65 Risk factors: > 3 risk factors or hx of atherosclerotic disease Troponin: Troponin T 1.490 ng/mL (0.00-0.029) H* 07/25/20 04:32 Troponin: 1-3x normal limit - Critical Actions Critical Actions: >7 pts:50-65% risk of adverse cardiac event. Early invasive measures Results - Labs CBC & Chem 7: 07/27/20 04:56 07/27/20 04:56 Labs: Laboratory Last Values WBC 9.4 K/mm3 (4.5-11.0) 07/27/20 04:56 RBC 4.71 M/mm3 (3.65-5.03) 07/27/20 04:56 Hgb 14.7 gm/dl (11.8-15.2) 07/27/20 04:56 Hct 42.1 % (35.5-45.6) 07/27/20 04:56 MCV 89 fl (84-94) 07/27/20 04:56 MCH 31 pg (28-32) 07/27/20 04:56 MCHC 35 % (32-34) H 07/27/20 04:56 RDW 12.4 % (13.2-15.2) L 07/27/20 04:56 Plt Count 288 K/mm3 (140-440) 07/27/20 04:56 Lymph % (Auto) 21.3 % (13.4-35.0) 07/27/20 04:56 Johnson % (Auto) 7.8 % (0.0-7.3) H 07/27/20 04:56 Eos % (Auto) 6.9 % (0.0-4.3) H 07/27/20 04:56 Baso % (Auto) 0.8 % (0.0-1.8) 07/27/20 04:56 Lymph # (Auto) 2.0 K/mm3 (1.2-5.4) 07/27/20 04:56 Johnson # (Auto) 0.7 K/mm3 (0.0-0.8) 07/27/20 04:56 Eos # (Auto) 0.6 K/mm3 (0.0-0.4) H 07/27/20 04:56 Baso # (Auto) 0.1 K/mm3 (0.0-0.1) 07/27/20 04:56 Seg Neutrophils % 63.2 % (40.0-70.0) 07/27/20 04:56 Seg Neutrophils # 5.9 K/mm3 (1.8-7.7) 07/27/20 04:56 PT 11.8 Sec. (12.2-14.9) L 07/27/20 04:56 INR 0.89 (0.87-1.13) 07/27/20 04:56 APTT 36.9 Sec. (24.2-36.6) H 07/24/20 09:01 Sodium 138 mmol/L (137-145) 07/27/20 04:56 Potassium 4.0 mmol/L (3.6-5.0) 07/27/20 04:56 Chloride 102.4 mmol/L (98-107) 07/27/20 04:56 Carbon Dioxide 25 mmol/L (22-30) 07/27/20 04:56 Anion Gap 15 mmol/L 07/27/20 04:56 BUN 21 mg/dL (9-20) H 07/27/20 04:56 Creatinine 0.9 mg/dL (0.8-1.3) 07/27/20 04:56 Estimated GFR > 60 ml/min 07/27/20 04:56 BUN/Creatinine Ratio 23 % 07/27/20 04:56 Glucose 92 mg/dL (75-100) 07/27/20 04:56 POC Glucose 79 mg/dL (70-105) 07/27/20 09:21 Hemoglobin A1c 5.5 % (4-6) 07/26/20 05:14 Calcium 8.6 mg/dL (8.4-10.2) 07/27/20 04:56 Total Creatine Kinase 1368 units/L (55-170) H 07/25/20 04:32 CK-MB (CK-2) 128.0 ng/mL (0.0-4.0) H 07/25/20 04:32 CK-MB (CK-2) Rel Index 9.3 (0-4) H 07/25/20 04:32 Troponin T 1.490 ng/mL (0.00-0.029) H* 07/25/20 04:32 NT-Pro-B Natriuret Pep 396.8 pg/mL (0-900) 07/24/20 09:01 Triglycerides 251 mg/dL (2-149) H 07/24/20 09:01 Cholesterol 346 mg/dL (50-199) H 07/24/20 09:01 LDL Cholesterol Direct 267 mg/dL (50-130) H 07/24/20 09:01 HDL Cholesterol 69 mg/dL (40-59) H 07/24/20 09:01 Cholesterol/HDL Ratio 5.01 % 07/24/20 09:01 Blood Type O POSITIVE 07/24/20 09:01 Antibody Screen Negative 07/24/20 09:01 - Diagnostic Impressions Diagnostic Impressions: Echocardiogram 07/24/20 12:45 Transthoracic Echocardiogram Indication: Acute [place] BP: 97/65 HR: 70 Conclusions *Global left ventricular systolic function is normal. *The estimated ejection fraction is 50-55%. *Mild concentric left ventricular hypertrophy is observed. *There is trace of aortic regurgitation. *There is trace of mitral regurgitation. *There is trace tricuspid regurgitation. Findings Left Ventricle: The left ventricular chamber size is normal. Mild concentric left ventricular hypertrophy is observed. Global left ventricular systolic function is normal. The estimated ejection fraction is 50-55%. Left Atrium: The left atrial chamber size is normal. Right Ventricle: The right ventricular cavity size is normal. The right ventricular global systolic function is normal. Right Atrium: The right atrial cavity size is normal. Aortic Valve: The aortic valve is trileaflet. The aortic valve leaflets are moderately thickened. There is trace of aortic regurgitation. There is no evidence of aortic stenosis. Mitral Valve: The mitral valve leaflets are mildly thickened. There is trace of mitral regurgitation. There is no evidence of mitral stenosis. Tricuspid Valve: The tricuspid valve leaflets are normal. There is trace tricuspid regurgitation. No pulmonary hypertension is noted. Pulmonic Valve: There is trace pulmonic regurgitation. Pericardium: There is no pericardial effusion. Aorta: There is no dilatation of the ascending aorta. There is no dilatation of the aortic root. Venous: The inferior vena cava appears normal in size. Measurements Chambers 2D Name Value Normal Range IVSd (2D) 0.89 cm (0.6 - 1.1) LVPWd (2D) 0.97 cm (0.6 - 1.1) LVIDd (2D) 4.43 cm (3.7 - 5.6) LVIDs (2D) 2.98 cm (2 - 3.8) LV FS (2D) 32.79 % - EF Teichholz (2D) 61.44 % - Ao root diameter (2D) 3.04 cm (2 - 3.7) Volumes/Mass Name Value Normal Range LA ESV SP 4CH (A/L) 38.17 ml - LA ESV SP 2CH (A/L) 30.89 ml - LA ESV BP (A/L) 36.36 ml - LA ESV BP (A/L) index 20.66 ml/m2 - LA ESV SP 4CH (MOD) 35.41 ml - LA ESV SP 2CH (MOD) 28.25 ml - LA ESV BP (MOD) 33.42 ml - LA ESV BP (MOD) index 18.99 ml/m2 - Diastolic/Systolic Function Name Value Normal Range MV E-wave Vmax 0.68 m/sec - MV deceleration time 175.16 msec - MV A-wave Vmax 0.79 m/sec - MV E:A ratio 0.85 ratio - Aortic Valve Name Value Normal Range AV Vmax 1.36 m/sec - AV VTI 27.9 cm - AV peak gradient 7.35 mmHg - AV mean gradient 3.89 mmHg - LVOT diameter 1.54 cm - LVOT Vmax 0.97 m/sec - LVOT VTI 19.1 cm - LVOT peak gradient 3.75 mmHg - LVOT mean gradient 1.98 mmHg - SV LVOT 35.35 ml - GIANNA (continuity Vmax) 1.32 cm2 - GIANNA (continuity VTI) 1.27 cm2 - AR PHT 1408.02 msec - AR peak gradient 43.19 mmHg - Tricuspid Valve Name Value Normal Range TR Vmax 2.14 m/sec - TR peak gradient 18 mmHg - RAP 3 mmHg - RVSP 21 mmHg - IVC diameter 1.83 cm (1.2 - 2.3) Pulmonic Valve/Qp:Qs Name Value Normal Range PV Vmax 0.89 m/sec - PV peak gradient 3.18 mmHg - PV acceleration time 60.89 msec - Dsouza/IV: Voiding Method Urinal Active Medications - Current Medications Current Medications: Generic Name Dose Route Start Last Admin Trade Name Freq PRN Reason Stop Dose Admin Acetaminophen 650 mg 07/25/20 03:47 07/25/20 18:19 Acetaminophen 325 Mg Tab PO 650 mg Q6H PRN Administration Pain, Mild (1-3) Hydrocodone Bitart/Acetaminophen 1 each 07/24/20 12:32 07/26/20 12:29 Hydrocodone/Acetaminophen 5-325 Mg Tab PO 1 each Q6H PRN Administration Pain, Moderate (4-6) Aspirin 325 mg 07/25/20 10:00 07/27/20 09:55 Aspirin Ec 325 Mg Tab PO 325 mg QDAY KATI Administration Clopidogrel Bisulfate 75 mg 07/25/20 10:00 07/27/20 09:55 Clopidogrel 75 Mg Tab PO 75 mg QDAY KATI Administration Isosorbide Mononitrate 30 mg 07/24/20 13:00 07/26/20 10:14 Isosorbide Mononitrate Er 30 Mg Tab PO 30 mg QDAY KATI Administration Losartan Potassium 12.5 mg 07/26/20 10:00 07/26/20 10:15 Losartan 25 Mg Tab PO 12.5 mg QDAY KATI Administration Metoprolol Tartrate 25 mg 07/26/20 10:00 07/26/20 22:08 Metoprolol Tartrate 25 Mg Tab PO 25 mg BID KATI Administration
[2020-07-27] MEDS: MIDAZOLAM 2 MG/2 ML INJ ONE ×4 (12:17→13:49)
[2020-07-27] MEDS ORDERED: SODIUM CHLORIDE 0.9% 500 ML 500 ML ONE (12:17)
[2020-07-27] MEDS: fentaNYL 100 MCG/2 ML INJ ONE ×4 (12:17→13:49)
[2020-07-27] MEDS: LIDOCAINE (2%) 20 MG/1 ML VIAL 20 ML MDV INFILTRATI ONE ×3 (12:19→13:28)
[2020-07-27] MEDS: HEPARIN 10,000 UNITS/10 ML VIAL ONE ×2 (12:29→12:57)
[2020-07-27] MEDS: NITROGLYCERIN SYRINGE 3 ML ONE ×2 (12:53→13:40)
[2020-07-27] MEDS: VERAPAMIL 5 MG/2 ML INJ ONE ×4 (12:57→13:53)
[2020-07-27] MEDS ORDERED: NITROGLYCERIN SYRINGE 3 ML ONE ×2 (13:39→13:51)
[2020-07-27] MEDS ORDERED: VERAPAMIL 5 MG/2 ML INJ ONE (13:40)
[2020-07-27] MEDS ORDERED: TIROFIBAN/NS 12,500 MCG/250 ML BAG IV ONE (13:43)
[2020-07-27] MEDS ORDERED: fentaNYL 100 MCG/2 ML INJ ONE (14:23)
[2020-07-27] MEDS ORDERED: HYDROcodone/ACETAMINOPHEN 5-325 MG TAB PO PRN (14:36)
--- NOTE | 2020-07-27 14:40 | Event Note ---
Date: 07/27/20 Patient underwent successful angioplasty and stenting of the mid LAD, followed by second vessel stenting of the circumflex. Excellent angiographic result in both vessels and JESUS-3 flow. He will be treated with Aggrastat for 18 hours. Anticipate discharge tomorrow on guideline directed optimal medical therapy.
[2020-07-27] MEDS ORDERED: SODIUM CHLORIDE 0.9% 1000 ML 1,000 ML IV SCH (14:45)
--- NOTE | 2020-07-27 15:12 | Cardiac Catherization Report ---
CORONARY ANGIOPLASTY REPORT REASON FOR PROCEDURE: The patient is a 60-year-old man who presented several days ago with an acute inferior wall myocardial infarction, underwent successful primary angioplasty and stenting of a distal right coronary occlusion. At that time, we found hazy 80% stenosis of the mid LAD and another 80% stenosis of the large mid obtuse marginal branch of the circumflex. He returns to the laboratory worker today for staged intervention to the LAD and circumflex. PROCEDURES: 1. Limited left coronary angiography. 2. Coronary angioplasty and stenting of the mid LAD. 3. Second vessel coronary angioplasty and stenting of the obtuse marginal branch of the circumflex artery. 4. Sedation time start at 1256, end 1405. I was present for the entire procedure and supervised the moderate sedation protocol. The patient was prepped and draped in a sterile fashion after informed consent. We were unable to obtain access via the right radial approach, and instead turned our attention to the right femoral artery. The right femoral artery was entered using a Seldinger technique followed by placement of a 6-Kiswahili sheath. A #3.0 XB guiding catheter was advanced to the left coronary ostium. Pre-intervention angiograms were taken. A 0.014 inch [employer] 50 guidewire was advanced into the LAD, across the lesional segment. In the primary stenting maneuver, a 2.5 x 12 mm drug-eluting stent was deployed successfully. This was followed by another 2.25 x 8 mm drug-eluting stent deployed to the distal border of the first stent. Angiograms revealed an excellent angiographic result and JESUS 3 flow in the LAD. We then turned our attention to the circumflex. The [employer] 50 guidewire was withdrawn and reintroduced into the circumflex system. After getting across the lesional segment, in another primary stenting maneuver, a 3.0 x 8 mm drug-eluting stent was deployed across the lesional segment in the mid obtuse marginal. The stent deployed to optimal pressures. Following stenting, there was an excellent angiographic result, 0 residual stenosis and JESUS 3 flow. The procedure was well tolerated by the patient and there were no complications. The wires and the catheters were taken out, sheath removed, hemostasis achieved using an Angio-Seal device. The patient was returned to the postprocedure unit in stable condition. CONCLUSION: 1. Successful angioplasty and stenting of the mid left anterior descending artery, 80% hazy stenosis treated with a serial 2.25 to 2.5 mm drug-eluting stents. 2. Successful second vessel coronary angioplasty and stenting of the mid obtuse marginal branch, using a 3.0 x 8 mm drug-eluting stent. JOB# [id number] MUSA/NTS
[2020-07-27] MEDS: TIROFIBAN/NS 12,500 MCG/250 ML BAG IV SCH (15:30)
[2020-07-27] MEDS: METOPROLOL TARTRATE 25 MG TAB PO SCH ×2 (18:15→21:32)
[2020-07-27] MEDS: LOSARTAN 25 MG TAB PO SCH (18:15)
[2020-07-28] MEDS: HYDROcodone/ACETAMINOPHEN 5-325 MG TAB PO PRN (02:04)
[2020-07-28] MEDS: ACETAMINOPHEN 325 MG TAB PO PRN (04:15)
[2020-07-28 06:30] LABS: Basophils # (Auto) 0.1 K/mm3 (0.0-0.1); Basophils % (Auto) 0.7 % (0.0-1.8); Eosinophils # (Auto) 0.7 K/mm3 (0.0-0.4); Hemoglobin 15.2 gm/dl (11.8-15.2); Lymphocytes # (Auto) 1.6 K/mm3 (1.2-5.4); Lymphocytes % (Auto) 16.4 % (13.4-35.0); Mean Corpuscular HGB Conc 35 % (32-34); Mean Corpuscular Volume 89 fl (84-94); Monocytes # (Auto) 0.6 K/mm3 (0.0-0.8); Monocytes % (Auto) 6.5 % (0.0-7.3); Platelet Count 367 K/mm3 (140-440); Red Blood Count 4.96 M/mm3 (3.65-5.03); Red Cell Distribution Width 12.8 % (13.2-15.2)
[2020-07-28 06:35] LABS: Creatine Kinase MB 40.9 ng/mL (0.0-4.0)
[2020-07-28 06:38] LABS: BUN/Creatinine Ratio 25; Blood Urea Nitrogen 20 mg/dL (9-20); Calcium 8.7 mg/dL (8.4-10.2); Hemolysis Index 12
[2020-07-28] MEDS: TIROFIBAN/NS 12,500 MCG/250 ML BAG IV SCH (07:00)
--- NOTE | 2020-07-28 09:01 | XRay Report ---
CHEST 1 VIEW 8:23 AM INDICATION / CLINICAL INFORMATION: Post-PCI. COMPARISON: 07/25/2020. FINDINGS: SUPPORT DEVICES: None. HEART / MEDIASTINUM: The heart size and pulmonary vasculature are normal. LUNGS / PLEURA: There is mild to moderate patchy subsegmental parenchymal disease in both lower lung zones medially, more prominent than on the prior exam. No pleural effusion. No pneumothorax. ADDITIONAL FINDINGS: No significant additional findings. IMPRESSION: Increasing bibasilar subsegmental atelectasis medially. Signer Name: Dennis Leroy MD Signed: 07/28/2020 8:56 AM Workstation Name: [id number]
[2020-07-28] MEDS: ASPIRIN EC 325 MG TAB PO SCH (09:37)
[2020-07-28] MEDS: CLOPIDOGREL 75 MG TAB PO SCH (09:38)
[2020-07-28] MEDS: METOPROLOL TARTRATE 25 MG TAB PO SCH (09:38)
[2020-07-28] MEDS: LOSARTAN 25 MG TAB PO SCH (09:38)
--- NOTE | 2020-07-28 10:01 | Progress Note ---
Assessment and Plan Acute inferior ST elevation myocardial infarction s/p PCI of the of the mid LAD s/p 2nd vessel PCI of the Cx LVEF 50-55% by echo Hx of coronary artery disease Hyperlipidemia with an LDL of 267 statin allergy Noncompliant with medical therapy and outpatient cardiac follow up Recommendations: Continue medical therapy for coronary artery disease including plavix and aspirin without interruption. Stable cardiac lewis for discharge. Patient will follow up in our office within 5-7 days. Subjective Date of service: 07/28/20 Interval history: Patient is post 2nd vessel PCI. He has no cardiac complaints. IV aggrastat near completion. No bleeding or hematoma noted to right groin cath site. Objective Vital Signs Temp Pulse Pulse Resp BP Pulse Ox 07/28/20 08:23 96 07/28/20 08:19 83 16 97 07/28/20 05:32 97.6 F 07/28/20 03:04 16 07/28/20 02:54 100.0 F H 76 16 103/60 99 07/28/20 02:04 18 07/27/20 22:47 100.3 F H 77 16 123/81 96 07/27/20 22:10 83 16 97 07/27/20 21:32 83 173/83 07/27/20 19:52 94 H 07/27/20 19:22 98.2 F 83 18 173/83 97 07/27/20 15:15 75 18 118/84 97 07/27/20 15:00 69 14 126/84 96 07/27/20 14:45 73 10 L 120/83 97 07/27/20 14:43 98.6 F 72 12 124/82 96 07/27/20 11:39 98.1 F 74 18 114/81 96 07/27/20 10:00 75 - Physical Examination General: No Apparent Distress HEENT: Positive: PERRL Neck: Positive: neck supple Cardiac: Positive: Reg Rate and Rhythm Lungs: Positive: Decreased Breath Sounds Neuro: Positive: Grossly Intact Abdomen: Positive: Soft Incision: Cardiac Cath Site (no bleeding or hematoma) Extremities: Absent: edema - Labs and Meds Cardiac Enzymes 07/28/20 Range/Units 05:33 CK-MB (CK-2) 40.9 H (0.0-4.0) ng/mL CBC 07/28/20 Range/Units 05:33 WBC 10.0 (4.5-11.0) K/mm3 RBC 4.96 (3.65-5.03) M/mm3 Hgb 15.2 (11.8-15.2) gm/dl Hct 44.0 (35.5-45.6) % Plt Count 367 (140-440) K/mm3 Lymph # (Auto) 1.6 (1.2-5.4) K/mm3 [place] # (Auto) 0.6 (0.0-0.8) K/mm3 Eos # (Auto) 0.7 H (0.0-0.4) K/mm3 Baso # (Auto) 0.1 (0.0-0.1) K/mm3 Comprehensive Metabolic Panel 07/28/20 Range/Units 05:33 Sodium 137 (137-145) mmol/L Potassium 4.3 (3.6-5.0) mmol/L Chloride 103.7 (98-107) mmol/L Carbon Dioxide 24 (22-30) mmol/L BUN 20 (9-20) mg/dL Creatinine 0.8 (0.8-1.3) mg/dL Glucose 101 H (75-100) mg/dL Calcium 8.7 (8.4-10.2) mg/dL
[2020-07-28 12:28] VITALS: BP 110/75
--- NOTE | 2020-07-28 15:17 | Discharge Summary ---
Providers - Providers Date of Admission: 07/24/20 09:38 Attending physician: SUSIE DIAZ MD 07/24/20 Consult to Cardiac Rehabilitation [CONS] Routine Reason For Exam: post pci 07/27/20 Consult to Cardiac Rehabilitation [CONS] Routine Reason For Exam: post pci Primary care physician: GUIDE Hospitalization Condition: Stable Disposition: DC-01 TO HOME OR SELFCARE Core Measure Documentation - Palliative Care Palliative Care/ Comfort Measures: Not Applicable Exam - Constitutional Vitals: Temp Pulse Resp BP Pulse Ox 99.3 F 82 19 110/75 95 07/28/20 12:26 07/28/20 12:26 07/28/20 12:26 07/28/20 12:26 07/28/20 12:26 Plan Follow up with: ARIADNA BRIZUELA MD [Staff Physician] - 7 Days PRIMARY CARE, [Primary Care Provider] - 3-5 Days Prescriptions: Losartan [Cozaar] 12.5 mg PO QDAY #30 tablet Aspirin EC [Ecotrin] 325 mg PO QDAY #30 tablet ISOSORBIDE MONOnitrate [Imdur ER] 30 mg PO QDAY #30 tablet Metoprolol [Lopressor TAB] 25 mg PO BID #60 tablet Clopidogrel [Plavix] 75 mg PO QDAY #30 tablet Ezetimibe [Zetia] 10 mg PO DAILY #30 tablet
== END 2020-07-28 13:13 | disposition home or self-care (01) | DRG 247 ==
LOC: ED 08:52 → CC1 09:38 → 4A 07-25 22:14
PROVIDERS: ADMIT Internal Medicine; ATTEND Internal Medicine
PROC: 027034Z Dilation of Coronary Artery, One Artery with Drug-eluting Intraluminal Device, Percutaneous Approach (ICD-10-PCS; principal; 2020-07-24)
PROC: 4A023N7 Measurement of Cardiac Sampling and Pressure, Left Heart, Percutaneous Approach (ICD-10-PCS; 2020-07-24)
PROC: B2111ZZ Fluoroscopy of Multiple Coronary Arteries using Low Osmolar Contrast (ICD-10-PCS; 2020-07-24)
PROC: 027135Z Dilation of Coronary Artery, Two Arteries with Two Drug-eluting Intraluminal Devices, Percutaneous Approach (ICD-10-PCS; 2020-07-27)
PROC: B2111ZZ Fluoroscopy of Multiple Coronary Arteries using Low Osmolar Contrast (ICD-10-PCS; 2020-07-27)
DX: I21.19 ST elevation (STEMI) myocardial infarction involving other coronary artery of inferior wall (principal); I10 Essential (primary) hypertension; E78.5 Hyperlipidemia, unspecified; I25.10 Atherosclerotic heart disease of native coronary artery without angina pectoris; Z95.5 Presence of coronary angioplasty implant and graft; E66.01 Morbid (severe) obesity due to excess calories; Z68.27 Body mass index [BMI] 27.0-27.9, adult; Z79.82 Long term (current) use of aspirin; Z88.8 Allergy status to other drugs, medicaments and biological substances; Z91.14 Patient's other noncompliance with medication regimen
CPT/HCPCS: 36415; 71045; 80048; 80061; 82550; 82553; 82962; 83036; 83880; 84484; 85014; 85018; 85025; 85027; 85049; 85610; 85730; 86850; 86900; 86901; 92928; 92929; 92941; 93005; 93306; 93454; 94760; 96365; 96375; 96376; G0378; C1725; C1760; C1769; C1874; C1887; C1894; C9600; C9601; C9606; J0461; J1644; J2250; J2405; J3010; J3246; J7030; J7040; Q9967